=== PATIENT | female | born 1950 | race Caucasian/White ===

== ENCOUNTER → 2016-12-12 | Outpatient (REF) | payer MEDICARE, OTHER ==
[2016-12-12 16:17] LABS: BLOOD UREA NITROGEN 19 MG/DL (7-18); GLOMERULAR FILTRATION RATE > 60.0 (>45)
== END ==
LOC: M LABDRAW1 15:43
PROVIDERS: ATTEND Physical Medicine & Rehabilitation
DX: Z79.899 Other long term (current) drug therapy (principal)

== ENCOUNTER → 2017-07-06 | Outpatient (REF) | payer MEDICARE, OTHER ==
[2017-07-06 16:18] LABS: BLOOD UREA NITROGEN 16 MG/DL (7-18); CREATININE FOR GFR 0.83 MG/DL (0.55-1.02); GLOMERULAR FILTRATION RATE > 60.0 (>45)
== END ==
LOC: M LABDRAW1 14:07
PROVIDERS: ATTEND Physical Medicine & Rehabilitation
DX: Z79.899 Other long term (current) drug therapy (principal)

== ENCOUNTER → 2017-12-12 | Outpatient (CLI) | payer MEDICARE, OTHER | LOC: M RAD 10:30 | DX: Z12.31 Encounter for screening mammogram for malignant neoplasm of breast (principal) | CPT/HCPCS: 77067 ==

== ENCOUNTER → 2018-05-14 | Outpatient (REF) | payer MEDICARE, OTHER ==
[2018-05-14 13:21] LABS: BLOOD UREA NITROGEN 16 MG/DL (7-18)
[2018-05-14 13:21] LABS: CREATININE FOR GFR 0.72 MG/DL (0.55-1.30); GLOMERULAR FILTRATION RATE > 60.0 (>45)
== END ==
LOC: M LABNEURO 09:32
DX: Z79.1 Long term (current) use of non-steroidal anti-inflammatories (NSAID) (principal)
CPT/HCPCS: 82565

== ENCOUNTER → 2018-09-21 | Outpatient (CLI) | payer MEDICARE, OTHER | LOC: M PLARAD 12:47 | DX: M50.320 Other cervical disc degeneration, mid-cervical region, unspecified level (principal) ==

== ENCOUNTER → 2019-11-01 | Outpatient (CLI) | payer MEDICARE, OTHER ==
--- NOTE | 2019-11-01 11:39 | REP ---
INDICATION: Cervical spondylosis PROCEDURE: MR cervical spine without contrast. Axial T1, T2, and sagittal T1 and T2 as well as STIR images are obtained. COMPARISON STUDIES: Prior study from 09/21/2018 was not available for review. FINDINGS: There is straightening of the cervical spine with absent normal cervical lordosis. There is [id number] multilevel degenerative disc disease with loss of disc height and disc desiccation seen diffusely throughout the cervical spine. Vertebral heights are overall preserved. No malalignments. Craniovertebral junction is unremarkable. On the sagittal T2-weighted images, no limiting canal stenosis. The cervical cord is normal in its course, caliber and signal characteristics. On review of axial images, At C2-3 no significant canal or foraminal narrowing. At C3-4 no significant canal or foraminal narrowing At C4-5 no significant canal or foraminal narrowing At C5-6 disc/osteophyte complex with mild left foraminal narrowing; no significant canal or right foraminal narrowing At C6-7 disc/osteophyte complex with [id number]-jxhnlo left foraminal narrowing; no significant canal or right foraminal narrowing. At C7-T1 no significant canal or foraminal narrowing. IMPRESSION: 1. Meuc-fc-[id number] multilevel degenerative disc disease. 2. No limiting canal stenosis. 3. At C6-7 disc/osteophyte complex centered to the left with severe left foraminal narrowing. 4. No focal disc herniation identified. Electronically Signed by Poli Church MD 11/01/2019 11:30 A
== END ==
LOC: M PLARAD 09:53
PROVIDERS: ATTEND Physician Assistant
DX: M47.22 Other spondylosis with radiculopathy, cervical region (principal); M25.78 Osteophyte, vertebrae

== ENCOUNTER → 2019-11-15 | Outpatient (CLI) | payer MEDICARE, OTHER ==
[~2019-11-15] MED LIST: CONRAY-43 43% 50ML VIAL (Q9960) As Ordered ONE; PROHANCE 279.3MG/ML 5ML VIAL (A9576) As Ordered ONE
--- NOTE | 2019-11-15 09:58 | REP ---
MR ARTHROGRAM OF THE LEFT SHOULDER: TECHNIQUE: Axial T2 fat sat, coronal oblique T1, T2 fat sat, post arthrogram axial T1 fat sat, proton density, coronal oblique T1 fat sat, T2 sat, sagittal oblique T2 fat sat, ABER T1 fat sat. Comparison MRI at [facility] 01/10/2017. Supraspinatus tendon demonstrates diffuse ill-defined high signal compatible with tendinopathy with partial thickness tear posteriorly of the distal aspect of the tendon. This is similar in appearance to the prior study. However, there is a new full thickness tear of the anterior of the anterior leading edge of the tendon. Other rotator cuffs tendons appear intact. There does appear to be mild tendinopathy of the scapularis. There are moderate hypertrophic degenerative changes of the acromioclavicular joint. There is a type 1 acromion. The biceps tendon is within the bicipital groove with a small amount of surrounding fluid. There is no Hill-Sachs deformity. There is no abnormal signal of the deltoid muscle. There is fraying of the biceps labral complex. There is a SLAP tear noted. Other portions of the labrum appear intact. There is mild chondromalacia of the glenohumeral joint. Mild subcortical cystic changes are seen in the superolateral humeral head. Small amount of fluid is seen in the subacromial subdeltoid bursa. There is no paralabral cyst. IMPRESSION: Supraspinatus tendon again demonstrates a partial tear posteriorly. There is a new full-thickness partial tear of the anterior leading edge of the tendon. There is mild tendinopathy of the subscapularis. There are moderate hypertrophic degenerative changes of the acromioclavicular joint. There is fraying of the biceps labral complex. A diffuse SLAP tear is noted. There is mild fluid in the subacromial subdeltoid bursae. Electronically Signed by Timothy Cox MD 11/15/2019 12:53 P
--- NOTE | 2019-11-15 11:25 | REP ---
Reason For Exam/Comment: RCT tear flash rupture, question labral tear Procedure: Left shoulder MRI arthrogram The procedure was performed by LUIS E Carpio, under the direct supervision of Dr. Cox. The benefits and risks including but not limited to pain, infection, bleeding and anaphylaxis were explained to the patient and informed consent was obtained both verbally and written. Directly prior to the start of the procedure, a formal timeout was completed in the procedure room. Technique: The left glenohumeral joint space was localized using fluoroscopic guidance. The skin was prepped and draped in the usual sterile fashion. 4 mL of 1% lidocaine 10 mg/ml was used as a local anesthetic. Using fluoroscopic guidance a 22-gauge spinal needle was inserted and advanced to the left glenohumeral joint space. 1 mL of Conray 43 was injected to verify needle placement. 12 mL of a solution containing 20 ml of sterile saline and a 0.15 ml of ProHance was injected into the joint. The needle was removed and the patient was taken MRI for post procedural imaging. The patient tolerated the procedure well and there were no immediate complications. 0.2 minutes of fluoroscopy time was utilized for this procedure. Some fluoroscopic images are performed with last image hold technology. These images require no additional radiation. Reviewed by LUIS E Norman 11/15/2019 08:24 A Electronically Signed by Timothy Cox MD 11/15/2019 11:16 A
== END ==
LOC: M RADPRO 06:16
PROVIDERS: ATTEND Physician Assistant
DX: M75.112 Incomplete rotator cuff tear or rupture of left shoulder, not specified as traumatic (principal)
CPT/HCPCS: 23350; 73223; 77002; A9576; Q9960

== ENCOUNTER 2020-02-05 18:45 | Inpatient (IN) | payer MEDICARE ==
[~2020-02-05] VITALS: Ht 162.6 cm; Wt 81.2 kg
[2020-02-05 21:13] VITALS: BP 130/77
[2020-02-05] MEDS ORDERED: FISH1000 PO (21:43)
[2020-02-05] MEDS ORDERED: VITAD1000T PO (21:43)
[2020-02-05] MEDS ORDERED: ALBU8.5H INH (21:43)
[2020-02-05] MEDS ORDERED: SERT50TA29 PO (21:43)
[2020-02-05] MEDS ORDERED: OMEP-218 PO (21:43)
[2020-02-05] MEDS ORDERED: MELO15TA28 PO (21:43)
[2020-02-05] MEDS ORDERED: BENZ-18 PO (21:43)
[2020-02-05] MEDS ORDERED: GABA-1171 PO (21:43)
[2020-02-05] MEDS ORDERED: PRES10CA2 PO (21:43)
[2020-02-05] MEDS ORDERED: CYAN100050 PO (21:43)
[2020-02-05] MEDS ORDERED: DSS100CA PO (21:43)
[2020-02-05] MEDS ORDERED: MAGN400C2 PO (21:43)
[2020-02-05 22:03] LABS: BASO % 0.6 % (0.0-1.0); EOS # 0.4 10^3/uL (0.0-0.5); EOS % 5.7 % (0.0-3.0); HEMATOCRIT 36.5 % (36.0-47.0); HEMOGLOBIN 11.9 g/dl (12.0-15.5); LYMPH # 1.7 10^3/uL (1.5-5.0); LYMPH % 27.3 % (24.0-44.0); MEAN CORPUSCULAR HEMOGLOBIN 30.3 pg (27.0-33.0); MEAN CORPUSCULAR HGB CONC 32.6 g/dl (32.0-36.5); MEAN CORPUSCULAR VOLUME 92.9 fl (80.0-96.0); MONO # 0.9 10^3/uL (0.0-0.8); NEUTROPHILS # 3.2 10^3/uL (1.5-8.5); NEUTROPHILS % 52.1 % (36.0-66.0); PLATELET COUNT, AUTOMATED 207 10^3/uL (150-450); RED BLOOD COUNT 3.93 10^6/uL (4.00-5.40); WHITE BLOOD COUNT 6.2 10^3/uL (4.0-10.0)
[2020-02-05 22:14] LABS: INR 1.35; PROTHROMBIN TIME 16.4 SECONDS (11.8-14.0)
[2020-02-05 22:15] LABS: PARTIAL THROMBOPLASTIN TIME 28.8 SECONDS (25.0-38.4)
[2020-02-05 22:17] LABS: D-DIMER QUANT 385.76 ng/ml (<500)
[2020-02-05 22:36] LABS: ALBUMIN 3.2 GM/DL (3.2-5.2); ALT/SGPT 20 U/L (12-78); BILIRUBIN,TOTAL 0.4 MG/DL (0.2-1.0); BLOOD UREA NITROGEN 18 MG/DL (7-18); CALCIUM LEVEL 8.3 MG/DL (8.8-10.2); CARBON DIOXIDE LEVEL 26 MEQ/L (21-32); CHLORIDE LEVEL 108 MEQ/L (98-107); CK-MB VALUE MASS < 1.0 NG/ML (<3.6); CPK CREATINE PHOSPHOKINASE 48 U/L (26-192); CREATININE FOR GFR 0.72 MG/DL (0.55-1.30); FERRITIN 154 NG/ML (8-252); GLOMERULAR FILTRATION RATE > 60.0 (>45); GLUCOSE, FASTING 104 MG/DL (70-100); LDH LACTATE DEHYDROGENASE 254 U/L (84-246); MB/CK RELATIVE INDEX 2.08 (< OR =4); NT-PRO BNP 162 PG/ML (<125); POTASSIUM SERUM 4.1 MEQ/L (3.5-5.1); SODIUM LEVEL 140 MEQ/L (136-145); TOTAL PROTEIN 6.7 GM/DL (6.4-8.2); TRIGLYCERIDES LEVEL 56 MG/DL (<150); TROPONIN I < 0.02 NG/ML (< 0.10)
[2020-02-05 23:24] LABS: HIV 1&2 SCREEN CENTAUR NEGATIVE (NEGATIVE)
[2020-02-05 23:37] LABS: ERYTHROCYTE SEDIMENTATION RATE 30 mm/hr (0-30)
[2020-02-06] MEDS: DOCUSATE SODIUM 100 MG CAP PO SCH ×3 (01:03→20:14)
[2020-02-06] MEDS: GABAPENTIN 100 MG CAP PO SCH ×4 (01:04→20:14)
[2020-02-06] MEDS ORDERED: IPRATROPIUM 0.5MG/ALBUTEROL 2.5MG INH SOL UD 3ML (DUONEB)(J7620) NEB PRN (05:15)
--- NOTE | 2020-02-06 05:36 | HPEPDOC ---
[facility] Medical History & Physical Date of Admission Feb 05, 2020 Date of Service: Feb 05, 2020 History and Physical CHIEF COMPLAINT: Dyspnea on exertion, cough and abnormal CT of the chest HISTORY OF PRESENT ILLNESS: This is a 69-year-old female with a medical history of arthritis, depression who was transferred to [facility] from [facility] for dyspnea and wheezing on exertion, dry cough and abnormal CT of the chest without contrast. She states symptoms initially started January 14 where she had dyspnea and shortness of breath with exertion. She rated the dyspnea as moderate with no fevers chills or sputum production at that time. She had COVD test and PA chest x-ray which were both negative. She self quarantine this month and a week later (January 20) she noticed her dyspnea on exertion did not improve and her cough became yellowish and productive in nature. Her PCP then repeated a chest x-ray which showed a community acquired pneumonia and she was advised to take a 10 day course of doxycycline. She noticed her productive cough improved with the antibiotics but the dyspnea on exertion continue to persist. Today during her telemetry medicine appointment with her PCP it was recommended her to get us outpatient CT of the chest without contrast and repeat coated due to persisting symptoms. Because of her CT of the chest was abnormal she was advised to go to the ED for further evaluation. She does endorse to monitor her O2 sats at home averaging about 92% on room air but does notice it will go to a low of 80% with exertion but will recover with rest. PAST MEDICAL HISTORY: 1. Arthritis 2. GERD. 3. Depression 4. Hyperlipidemia 5. Chronic interstitial cystitis 6. Chronic micropscopic hematuria 7. Bilateral Cateracts HOME MEDICATIONS: Please see below. ALLERGIES: Please see below PAST SURGICAL HISTORY: 1. Left arthroscopy 2. Low back surgery 3. Cystectomy 4. Tubal ligation 5. Left leg vein stripping 6. Bipsy left breast. 7. Left wrist fracture with ORIF SOCIAL HISTORY: , Tobacco use: Denies ETOH: Denies Illicit drug use: Denies, CODE STATUS: Full code FAMILY HISTORY:Reviewed. Mother- arthritis, father-congestive heart failure, brothers- pulmonary fibrosis, COPD, prostate cancer with metastases REVIEW OF SYSTEMS: 10 systems reviewed. Constitutional: Denies fever, chills, night sweats, weight loss HEENT: Denies headache, dysphagia Skin: Denies any rashes or lesions Pulmonary: Admits to dyspnea, dry cough and wheezing on exertion Cardiac: Denies chest pain, palpitations, orthopnea, PND, edema, lightheadedness GI: Denies nausea, vomiting, abdominal pain, diarrhea, constipation, melena, hematochezia : Denies dysuria, hematuria, retention MSK: Denies new pain or weakness, has arthritic changes on her fingers bilaterally unchanged. 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 PHYSICAL EXAMINATION: VITAL SIGNS: See below GENERAL: Pleasant 69 year old sitting up in bed awake alert oriented speaking in complete sentences no acute distress HEENT: Atraumatic, normocephalic, pupils equal round and reactive, no JVD noted. CARDIOVASCULAR: S1 S2 regular no additional heart sounds appreciated. RESPIRATORY: Clear to auscultate in the upper lobe but rhonchi appreciated in the ABDOMINAL: Bowel sounds present abdomen soft and nontender EXTREMITIES: Lower extremity edema or calf tenderness. NEUROLOGICAL: no gross focal deficits appreciated PSYCHOLOGICAL: Appropriate LABORATORY DATA: See below. MICROBIOLOGY: Please see below. IMAGING: CT of the chest without contrast at [facility] Fairly extensive diffuse mostly peripheral opacity which appears to be a combination of both acute and chronic disease. Findings not typical for Covid 19 but not exclusive correlate Clinically and suggest follow-up imaging. ASSESSMENT & PLAN: This is a 69-year-old female presenting for dyspnea and wheezing on exertion, dry cough and abnormal CT of the chest. PROBLEMS: 1. Dyspnea and wheezing on exertion possible viral pneumonitis versus COPD exacerbation. Unlikely Covid vs PE -Denies any recent fevers, and Covid 3 negative most current today at [facility] and [place] prior to transfer. -[facility] lab: Influenza A/B negative, VBG was normal pH, troponin normal, lactic acid within normal limits with no abnormal CBC or BMP findings. -CT of the chest CD in the chart. Imaging was reviewed by me which showed increased interstitial markings and opacity in the base of the lungs bilate rally. -I would recommend that they discuss with pulmonary findings a CT of the chest broadened differential. -Due to the history of wheezing and dyspnea on exertion, recommended Solu- Thsett37 mg every 12 for the next 2 days and see if there is clinical improvement of exertional symptoms. -Antibiotics not warranted for there is no leukocytosis and denies any constitutional symptoms. -Possibly will need pulmonary function test? -Duonebs PRN + benzonatate -Titrate oxygen above 90% -If worsening hypoxia and requires more oxygen can consider CT angios the chest to rule out a PE. Suspicion is very low currently due to normal d-dimer, normal heart rate, satting appropriately on room air with no pleurisy complaints. 2. Abnormal CT of the chest without contrast. refer to problem 1 and hold melox icam 3. Low back pain - consider No-NSAIDs for pain control if needed due to problem 1 and 2. Continue with home gabapentin 4. GERD. Continue with home omeprazole 5. Depression. Continue with home sertraline DVT PROPHYLAXIS: Heparin BID DISPOSITION: Admit to [facility] Vital Signs Vital Signs Date Time Temp Pulse Resp B/P (MAP) Pulse Ox O2 Delivery O2 Flow Rate FiO2 02/06/20 02:00 69 93 Room Air 02/05/20 21:13 98.9 20 130/77 (94) 2.0 Laboratory Data Labs 24H Laboratory Tests 2 02/05/20 21:20: Coronavirus (COVID-19)(PCR) NEGATIVE 02/05/20 21:48: Immature Granulocyte % (Auto) 0.3, Neutrophils (%) (Auto) 52.1, Lymphocytes (%) (Auto) 27.3, Monocytes (%) (Auto) 14.0H, Eosinophils (%) (Auto) 5.7H, Basophils (%) (Auto) 0.6, Neutrophils # (Auto) 3.2, Lymphocytes # (Auto) 1.7, Monocytes # (Auto) 0.9H, Eosinophils # (Auto) 0.4, Basophils # (Auto) 0.0, Nucleated Red Blood Cells % (auto) 0.0, Erythrocyte Sedimentation Rate 30, Lactic Acid Level 1.0 02/05/20 21:49: Prothrombin Time 16.4H, Prothromb Time International Ratio 1.35, Activated Partial Thromboplast Time 28.8, Fibrinogen 438, D-Dimer, Quantitative 385.76, Anion Gap 6L, Glomerular Filtration Rate > 60.0, Calcium Level 8.3L, Ferritin 154, Total Bilirubin 0.4, Aspartate Amino Transf (AST/SGOT) 22, Alanine Aminotransferase (ALT/SGPT) 20, Alkaline Phosphatase 118H, Lactate Dehydrogenase 254H, Total Creatine Kinase 48, Creatine Kinase MB < 1.0, Creatine Kinase MB Relative Index 2.08, Troponin I < 0.02, C-Reactive Protein, Quantitative 0.30, NT-Mol-L-Type Natriuretic Peptide 162H, Total Protein 6.7, Albumin 3.2, Albumin/Globulin Ratio 0.91L, Triglycerides Level 56, HIV Antigen/Antibody Combo Qual NEGATIVE CBC/BMP Laboratory Tests 02/05/20 21:48 02/05/20 21:49 Microbiology Microbiology 02/05/20 Blood Culture, Received Pending 02/05/20 Blood Culture, Received Pending Home Medications Scheduled Cholecalciferol (Vitamin D3) (Vitamin D3) 1,000 Unit Tablet, 1,000 UNITS PO DAILY Cyanocobalamin (Vitamin B-12) (Vitamin B-12) 1,000 Mcg Tablet, 1,000 MCG PO DAILY Docusate Sodium (Stool Softener) 100 Mg Capsule, 100 MG PO BID Gabapentin (Gabapentin) 100 Mg Capsule, 100 MG PO TID Magnesium Oxide (Magnesium) 400 Mg Capsule, 400 MG PO DAILY Meloxicam (Meloxicam) 15 Mg Tablet, 15 MG PO DAILY [place]-3 Fatty Acids/Fish Oil (Fish Oil 1,000 mg Capsule) 1 Each Capsule, 1,000 MG PO DAILY Omeprazole (Omeprazole) 20 Mg Capsule.dr, 20 MG PO BID Sertraline HCl (Sertraline HCl) 50 Mg Tablet, 50 MG PO DAILY Vit C/E/Zn/Coppr/Lutein/Zeaxan (Preservision Areds 2 Softgel) 1 Each Capsule, 1 CAP PO BID Scheduled PRN Albuterol Sulfate (Albuterol Sulfate Hfa) 8.5 Gm Hfa.aer.ad, 2 PUFF INH Q4H PRN for SHORTNESS OF BREATH Benzonatate (Benzonatate) 100 Mg Capsule, 100 MG PO TID PRN for COUGH PATIENT TAKES ONE TO TWO CAPSULES Allergies Coded Allergies: Quinolones (Verified Allergy, Intermediate, HIVES, 02/05/20) codeine (Unverified Adverse Reaction, Unknown, INCREASED PAIN, 02/05/20) PRISCILLA PATEL DO Feb 06, 2020 04:55
[2020-02-06 05:40] LABS: HEMATOCRIT 35.4 % (36.0-47.0); HEMOGLOBIN 11.4 g/dl (12.0-15.5); MEAN CORPUSCULAR HGB CONC 32.2 g/dl (32.0-36.5); MEAN CORPUSCULAR VOLUME 93.2 fl (80.0-96.0); PLATELET COUNT, AUTOMATED 200 10^3/uL (150-450); WHITE BLOOD COUNT 6.9 10^3/uL (4.0-10.0)
[2020-02-06] MEDS: methylPREDNISolone INJ 40 MG/1 ML VIAL (J2920) IV SCH ×2 (05:58→17:01)
[2020-02-06 06:00] VITALS: BP 97/54
[2020-02-06 06:05] LABS: BLOOD UREA NITROGEN 16 MG/DL (7-18); CALCIUM LEVEL 8.6 MG/DL (8.8-10.2); CARBON DIOXIDE LEVEL 28 MEQ/L (21-32); CHLORIDE LEVEL 105 MEQ/L (98-107); CREATININE FOR GFR 0.69 MG/DL (0.55-1.30); GLOMERULAR FILTRATION RATE > 60.0 (>45); GLUCOSE, FASTING 85 MG/DL (70-100); POTASSIUM SERUM 4.6 MEQ/L (3.5-5.1); SODIUM LEVEL 138 MEQ/L (136-145)
[2020-02-06] MEDS ORDERED: PREVNAR 13 VACCINE SYRINGE (CPT CODE:90670) IM SCH (06:15)
[2020-02-06 07:35] VITALS: BP 103/63
[2020-02-06] MEDS: OMEPRAZOLE 20 MG CAP PO SCH ×2 (08:31→20:14)
[2020-02-06] MEDS: SERTRALINE HCL 50 MG TAB PO SCH (08:31)
[2020-02-06] MEDS: HEPARIN SOD (PORCINE) 5000UNITS/ML VIAL (J1644 PER 1000UNITS) SQ SCH ×2 (08:32→20:14)
[2020-02-06 10:00] VITALS: BP 111/71
[2020-02-06 10:19] VITALS: BP 112/70
[2020-02-06] MEDS: BENZONATATE 100 MG CAP PO PRN (12:58)
[2020-02-06] MEDS: guaiFENesin SYRUP 200 MG/10 ML UDC PO PRN (13:45)
--- NOTE | 2020-02-06 13:59 | IPNPDOC ---
Text Note Date of Service The patient was seen on 02/06/20. NOTE Subjective: -Feels ok this morning, however continued to have an incessant dry cough Objective: VITAL SIGNS: See below GENERAL: Pleasant 69 year old sitting up in bed awake alert oriented speaking in complete sentences no acute distress HEENT: Atraumatic, normocephalic, pupils equal round and reactive, no JVD noted. CARDIOVASCULAR: S1 S2 regular no additional heart sounds appreciated. RESPIRATORY: Clear to auscultate in the upper lobe but rhonchi appreciated in the ABDOMINAL: Bowel sounds present abdomen soft and nontender EXTREMITIES: Lower extremity edema or calf tenderness. NEUROLOGICAL: no gross focal deficits appreciated PSYCHOLOGICAL: Appropriate LABORATORY DATA: WBC 6.9 Hgb 11.4 Platelets 200 na 138 K 4.6 Cr 0.69 Procalcitonin - pending BCx- pending Mycoplasma - pending Covid-19 PCR negative MICROBIOLOGY: Please see below. IMAGING: CT of the chest without contrast at [facility] Fairly extensive diffuse mostly peripheral opacity which appears to be a combination of both acute and chronic disease. Findings not typical for Covid 19 but not exclusive correlate Clinically and suggest follow-up imaging. ASSESSMENT & PLAN: 69-year-old W with RA presenting for dyspnea and wheezing on exertion, dry cough and abnormal CT of the chest found to be covid-19 negative without erendira evidence of PNA or diagnosis of COPD or asthma. PROBLEMS: Dyspnea and wheezing on exertion possible viral pneumonitis vs. bronchitis. Negative for Covid-19, and d-dimer wnl with low probability for PE -Denies any recent fevers, and Covid 3 negative most current today at [facility] and [place] prior to transfer. -[place] [facility]sl Influenza A/B negative, VBG was normal pH, troponin normal, lactic acid within normal limits with no abnormal CBC or BMP findings. -CT of the chest showed increased interstitial markings and bibasilar GGOs, will discuss with pulm -Due to the history of wheezing and dyspnea on exertion giving methylpred 40 IV BID for the next 2 days and monitor for clinical improvement of exertional symptoms. -Hold on starting antibiotics without leukocytosis, constitutional symptoms and pending procalcitonin. -Will refer to pulm at discharge for PFTs -Duonebs PRN + benzonatate + Robitussin -Titrate oxygen above 92% Low back pain - Continue with home gabapentin and acetaminophen PRN GERD. Continue home omeprazole Depression. Continue with home sertraline DVT PROPHYLAXIS: Heparin 40 QD DISPOSITION: medsurg, with PT/OT with ambulatory sat, pending clinical improvement VSJesus, I+O VSJesus, I+O Laboratory Tests 02/05/20 21:48 02/05/20 21:49 02/06/20 05:13 Vital Signs Date Time Temp Pulse Resp B/P (MAP) Pulse Ox O2 Delivery O2 Flow Rate FiO2 02/06/20 06:00 98.3 71 20 97/54 (68) 94 Room Air 02/05/20 21:13 2.0 I&O- Last 24 Hours up to 6 AM 02/06/20 06:00 Intake Total 100 ml Balance 100 ml GENO REYES MD Feb 06, 2020 07:44
[2020-02-06 14:00] VITALS: BP 105/72
[2020-02-06 22:00] VITALS: BP 115/68
[2020-02-07 00:06] LABS: HEPATITIS B CORE ANTIBODY IGG Negative (Negative)
[2020-02-07] MEDS: BENZONATATE 100 MG CAP PO PRN (05:36)
[2020-02-07] MEDS: methylPREDNISolone INJ 40 MG/1 ML VIAL (J2920) IV SCH ×2 (05:36→16:58)
[2020-02-07 06:00] VITALS: BP 136/85
[2020-02-07 06:54] LABS: HEMATOCRIT 36.8 % (36.0-47.0); HEMOGLOBIN 11.9 g/dl (12.0-15.5); MEAN CORPUSCULAR HEMOGLOBIN 30.2 pg (27.0-33.0); MEAN CORPUSCULAR HGB CONC 32.3 g/dl (32.0-36.5); MEAN CORPUSCULAR VOLUME 93.4 fl (80.0-96.0); PLATELET COUNT, AUTOMATED 209 10^3/uL (150-450); RED BLOOD COUNT 3.94 10^6/uL (4.00-5.40); WHITE BLOOD COUNT 8.1 10^3/uL (4.0-10.0)
[2020-02-07 07:14] LABS: BLOOD UREA NITROGEN 19 MG/DL (7-18); CALCIUM LEVEL 8.4 MG/DL (8.8-10.2); CARBON DIOXIDE LEVEL 27 MEQ/L (21-32); CHLORIDE LEVEL 104 MEQ/L (98-107); GLOMERULAR FILTRATION RATE > 60.0 (>45); GLUCOSE, FASTING 96 MG/DL (70-100); MAGNESIUM LEVEL 2.2 MG/DL (1.8-2.4); POTASSIUM SERUM 4.1 MEQ/L (3.5-5.1); SODIUM LEVEL 136 MEQ/L (136-145)
[2020-02-07] MEDS: DOCUSATE SODIUM 100 MG CAP PO SCH ×2 (08:56→20:57)
[2020-02-07] MEDS: SERTRALINE HCL 50 MG TAB PO SCH (08:56)
[2020-02-07] MEDS: OMEPRAZOLE 20 MG CAP PO SCH ×2 (08:56→20:57)
[2020-02-07] MEDS: GABAPENTIN 100 MG CAP PO SCH ×3 (08:56→20:57)
[2020-02-07] MEDS: HEPARIN SOD (PORCINE) 5000UNITS/ML VIAL (J1644 PER 1000UNITS) SQ SCH ×2 (08:57→20:57)
[2020-02-07 11:04] LABS: HEPATITIS B SURFACE ANTIGEN NEGATIVE (NEGATIVE)
[2020-02-07 14:00] VITALS: BP 106/72
--- NOTE | 2020-02-07 14:03 | REP ---
REASON FOR EXAM: Cough. COMPARISON: Multiple, the latest 04/20/2015, also portable. The technique utilized in obtaining the radiograph has magnified the cardiac silhouette and accentuated the interstitial markings. The cardiac silhouette is magnified by technique. Mild cardiomegaly cannot be ruled out. The lung ventura are less than optimally aerated. This crowds the vascularity further limiting the exam. The interstitial markings are slightly diffusely increased. No definite acute patchy parenchymal opacities or pleural effusions seem to have developed on this limited portable exam. The osseous structures are stable and intact. IMPRESSION: Findings and limitations as described above. I cannot rule out the possibility of mild interstitial edema. Consider PA and lateral views of the chest. Electronically Signed by Subhash Abel DO 02/07/2020 02:58 P
--- NOTE | 2020-02-07 16:04 | IPNPDOC ---
Text Note Date of Service The patient was seen on 02/07/20. NOTE Subjective: -Continues to have the dry cough and profound hypoxemia with exertion and return to normal sats with rest Objective: VITAL SIGNS: See below GENERAL: Pleasant 69 year old sitting up in bed awake alert oriented speaking in complete sentences no acute distress HEENT: Atraumatic, normocephalic, pupils equal round and reactive, no JVD noted. CARDIOVASCULAR: S1 S2 regular no additional heart sounds appreciated. RESPIRATORY: Dry velcro-like crackles in posterior lower lung ventura, clear upper ventura, no wheezing or rhonchi ABDOMINAL: Bowel sounds wnl, abdomen soft and nontender EXTREMITIES: No lower extremity edema or calf tenderness, WWP NEUROLOGICAL: no gross focal deficits appreciated PSYCHOLOGICAL: Appropriate LABORATORY DATA: WBC 8.1 Hgb 11.9 Platelets 209 Cr 0.7 Procalcitonin - wnl BCx- negative Mycoplasma - pending Covid-19 PCR negative MICROBIOLOGY: Please see below. IMAGING: CT of the chest without contrast at [facility] Fairly extensive diffuse mostly peripheral opacity which appears to be a combination of both acute and chronic disease. Findings not typical for Covid 19 but not exclusive correlate Clinically and suggest follow-up imaging. ASSESSMENT & PLAN: 69-year-old W with RA who presented for dyspnea and wheezing on exertion, dry cough and CT of the chest with peripheral fibrosis found to be covid-19 negative without erendira evidence of PNA or diagnosis of COPD or asthma with ongoing exertional hypoxemia and persistent dry cough PROBLEMS: Dyspnea and wheezing on exertion possible viral pneumonitis, rheumatologically mediated progressive fibrosis vs. allergic pneumonitis to family birds Negative for Covid-19, and d-dimer wnl with low probability for PE -Denies any recent fevers, and Covid negative -[place] labs showed Influenza A/B negative, VBG was normal pH, troponin normal, lactic acid within normal limits with no abnormal CBC or BMP findings. -CT of the chest showed increased interstitial markings and bibasilar fibrosis -consulted pulm --> will see her tomorrow -Due to the history of wheezing and dyspnea on exertion giving methylpred 40 IV BID, frankly unclear if there has been utility to the methylpredo 40 BID at this time -Hold on starting antibiotics without leukocytosis, constitutional symptoms and negative procalcitonin. -Will follow up with pulm at discharge for PFTs and optimization -Duonebs PRN + benzonatate + Robitussin -Titrate oxygen above 92% Low back pain - Continue with home gabapentin and acetaminophen PRN GERD. Continue home omeprazole Depression. Continue with home sertraline DVT PROPHYLAXIS: Heparin 40 QD DISPOSITION: medsurg, with PT/OT with ambulatory sat, pending pulm consult and pending clinical improvement VS,Fishbone, I+O VS, Fishbone, I+O Laboratory Tests 02/07/20 06:09 Vital Signs Date Time Temp Pulse Resp B/P (MAP) Pulse Ox O2 Delivery O2 Flow Rate FiO2 02/07/20 14:00 97.8 82 18 106/72 (83) 95 Room Air 02/05/20 21:13 2.0 I&O- Last 24 Hours up to 6 AM 02/07/20 06:00 Intake Total 1890 ml Output Total 1500 ml Balance 390 ml GENO REYES MD Feb 07, 2020 16:04
[2020-02-07 22:00] VITALS: BP 122/65
[2020-02-08 00:07] LABS: MYCOPLASMA PNEUMONIAE IgG 433 U/mL (0-99); MYCOPLASMA PNEUMONIAE IgM <770 U/mL (0-769)
[2020-02-08 06:00] VITALS: BP 102/62
[2020-02-08 06:28] LABS: HEMATOCRIT 36.7 % (36.0-47.0); MEAN CORPUSCULAR HEMOGLOBIN 30.8 pg (27.0-33.0); MEAN CORPUSCULAR HGB CONC 32.7 g/dl (32.0-36.5); MEAN CORPUSCULAR VOLUME 94.1 fl (80.0-96.0); PLATELET COUNT, AUTOMATED 199 10^3/uL (150-450); WHITE BLOOD COUNT 8.9 10^3/uL (4.0-10.0)
[2020-02-08 06:48] LABS: BLOOD UREA NITROGEN 17 MG/DL (7-18); CALCIUM LEVEL 8.5 MG/DL (8.8-10.2); CARBON DIOXIDE LEVEL 27 MEQ/L (21-32); CHLORIDE LEVEL 106 MEQ/L (98-107); CREATININE FOR GFR 0.74 MG/DL (0.55-1.30); GLOMERULAR FILTRATION RATE > 60.0 (>45); GLUCOSE, FASTING 86 MG/DL (70-100); MAGNESIUM LEVEL 2.3 MG/DL (1.8-2.4); POTASSIUM SERUM 4.2 MEQ/L (3.5-5.1); SODIUM LEVEL 138 MEQ/L (136-145)
[2020-02-08] MEDS ORDERED: AZITHROMYCIN 250MG TABLET PO ONE (09:00)
[2020-02-08] MEDS: GABAPENTIN 100 MG CAP PO SCH ×3 (09:20→20:14)
[2020-02-08] MEDS: SERTRALINE HCL 50 MG TAB PO SCH (09:20)
[2020-02-08] MEDS: DOCUSATE SODIUM 100 MG CAP PO SCH ×2 (09:20→20:14)
[2020-02-08] MEDS: OMEPRAZOLE 20 MG CAP PO SCH ×2 (09:20→20:14)
[2020-02-08] MEDS: HEPARIN SOD (PORCINE) 5000UNITS/ML VIAL (J1644 PER 1000UNITS) SQ SCH ×2 (09:21→20:14)
--- NOTE | 2020-02-08 11:57 | IPNPDOC ---
Text Note Date of Service The patient was seen on 02/08/20. NOTE Subjective: -Continues to have the dry cough and hypoxemia with exertion, otherwise wnl at rest Objective: VITAL SIGNS: See below GENERAL: NAD, sitting up in bed HEENT: Atraumatic, normocephalic, pupils equal round and reactive, no JVD CARDIOVASCULAR: RRR, no mrg RESPIRATORY: Persistent dry crackles in posterior lower lung ventura, clear upper ventura, no wheezing or rhonchi ABDOMINAL: Bowel sounds wnl, abdomen soft and nontender EXTREMITIES: No lower extremity edema or calf tenderness, WWP NEUROLOGICAL: no gross focal deficits appreciated PSYCHOLOGICAL: Appropriate LABORATORY DATA: WBC 8.9 Hgb 12 Mycoplasma - IgG positive, IgM negative. Covid-19 PCR negative pending rheum and broader infectious workup MICROBIOLOGY: Please see below. ASSESSMENT: 69-year-old W with RA who presented for dyspnea and wheezing on exertion, dry cough and CT of the chest with peripheral fibrosis found to be covid-19 negative without erendira evidence of PNA or diagnosis of COPD or asthma with ongoing exertional hypoxemia and persistent dry cough with pending pulmonology evaluation. PROBLEMS: Dyspnea and wheezing on exertion possible viral pneumonitis, rheumatologically mediated progressive fibrosis vs. allergic pneumonitis to family birds Negative for Covid-19, and d-dimer wnl with low probability for PE -Denies any recent fevers, and Covid negative -[facility] labs showed Influenza A/B negative, VBG was normal pH, troponin normal, lactic acid within normal limits with no abnormal CBC or BMP findings. -CT of the chest showed increased interstitial markings and bibasilar fibrosis, have to call [facility] for disc -consulted pulm, ordered rheum and broader infectious labs, pending recs, per our discussion thus far recommending prolonged pred taper for likely hypersensi tivity pneumonitis 2/2 to patient's birds -Due to the history of wheezing and dyspnea on exertion s/p a trial of methylpred 40 IV BID for 2d without much improvement, dc'd until pulm evaluation -No antibiotics without leukocytosis, constitutional symptoms and negative procalcitonin. Showing +IgG for mycoplasma with negative IgM. Was recently tx with 10d of doxycycline. -Will follow up with pulm at discharge for PFTs and optimization -Duonebs PRN + benzonatate + Robitussin -Titrate oxygen above 92% Low back pain - Continue with home gabapentin and acetaminophen PRN GERD. Continue home omeprazole Depression. Continue with home sertraline DVT PROPHYLAXIS: Heparin 40 QD DISPOSITION: medsurg, with PT/OT with ambulatory sat, pending pulm evaluation and pending clinical improvement VS,Jesus, I+O VS, Rubioe, I+O Laboratory Tests 02/08/20 06:02 Vital Signs Date Time Temp Pulse Resp B/P (MAP) Pulse Ox O2 Delivery O2 Flow Rate FiO2 02/08/20 06:00 97.6 81 19 102/62 (75) 93 Room Air 02/05/20 21:13 2.0 I&O- Last 24 Hours up to 6 AM 02/08/20 06:00 Intake Total 2610 ml Output Total 1750 ml Balance 860 ml GENO REYES MD Feb 08, 2020 08:27
--- NOTE | 2020-02-08 12:11 | CR ---
DATE OF CONSULTATION: 02/08/2020 CHIEF COMPLAINT: Shortness of breath and cough. HISTORY OF PRESENT ILLNESS: Ms. Rivera is a 69 -year-old female with a past medical history of osteoarthritis, hyperlipidemia and gastroesophageal reflux disease who was transferred from [facility] to [facility] for ongoing dyspnea with an abnormal CT chest. The patient states she has been noticing symptoms for the past 6 months to a year of shortness of breath with exertion. She has been told by friends and family that her lips occasionally will turn bluish purple discoloration she will also notice this purplish blue discoloration in her fingers as well. The patient states in the past 6 weeks, however, she has noticed progressively worsening shortness of breath and dyspnea with exertion. She also started complaining of a cough, which was occasionally productive of mucus yellowish in color. She did also initially notice some episodes of hemoptysis which resolved after 2 days. The patient had been seen as an outpatient by her primary care provider. She had an initial presentation at the urgent care with COVID testing, which was reportedly negative. She was instructed to self quarantine. However of week later, she had continued symptoms of dyspnea and cough and so presented for a repeat chest x-ray, which she was told showed evidence of pneumonia. Her PCP ordered a 10-day course of doxycycline, which she took and did have some slight improvement in terms of the mucus production. He also prescribed her albuterol rescue inhaler to be used as needed and Tessalon Perles to be used for her cough. However, she continued to have a nonproductive cough which was worse with exertion as well as continued significant dyspnea with minimal exertion. The patient was seen again by her primary care provider and was then recommended to get a CT of the chest at [facility]. Her CT was abnormal and she did have third COVID testing again which was also negative. At [facility] the patient was noted to not have any leukocytosis. She was normotensive and at rest on room air, she was saturating well. However, with minimal exertion, the patient desaturated into the low 80s and occasionally in the 70s. The patient was started initially on Solu-Medrol 40 mg every 12 hours. She was also given Tessalon Perles and DuoNebs as needed. She currently states that her breathing is unchanged. She feels her cough has improved although it had started to improve prior to her hospitalization here. She does continue to have some nonproductive cough with exertion but her shortness of breath with exertion is unchanged at this time. She denies having any chest pain. Has not had any increased lower extremity edema. Denies any abdominal pain. No nausea or vomiting. The patient denies a previous history of rheumatoid arthritis. She has a history of what she was told was osteoarthritis. She does have joint pain in her shoulder with rotator cuff injury in the past as well as some pain in her knee, which she states has a torn meniscus in the left knee. She also has some neuropathy in her upper extremities, which she states is chronic after she had cervical injury. PAST MEDICAL/SURGICAL HISTORY: Osteoarthritis. Gastroesophageal reflux disease. Depression. Hyperlipidemia. Chronic interstitial cystitis. Chronic microscopic hematuria. Bilateral cataract surgery. Left arthroscopy of the knee. Low back surgery. Cystectomy. Tubal ligation. Left leg vein stripping. Biopsy of the left breast. Left wrist fracture with open reduction internal fixation (ORIF). FAMILY HISTORY: Mother with history of rheumatoid arthritis. Father with history of congestive heart failure (CHF). There is a one brother with history of pulmonary fibrosis, another brother with history of chronic obstructive pulmonary disease (COPD) and a younger brother who is secondary to metastatic prostate cancer. SOCIAL HISTORY: The patient denies history of smoking. She does have secondhand smoke exposure with her parents and siblings. The patient denies any toxins exposure including asbestos or other chemicals. 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 The patient has pets at home with dogs as well as she estimates 70 small birds. The patient and her has had birds at various times in the past including pigeons. More recently her had started taking up bird collecting and breeding, she states about 2 years ago with parakeets, finches etc. The birds are kept in one room in the house and she does go in the room to clean the bird cages and help take care of the birds. HOME MEDICATIONS: - vitamin D3 - vitamin B12 - gabapentin - magnesium oxide - meloxicam - fish oil - omeprazole - sertraline - albuterol as needed - Tessalon as needed ALLERGIES: QUINOLONES and CODEINE PHYSICAL EXAMINATION: Temperature 97.6, pulse 81, respirations 19, blood pressure 102/62, O2 sat 93% on room air, input 2.4 liters, outs 1.8 liters. GENERAL: The patient is a pleasant female who is sitting in bed in no acute respiratory distress. She is speaking in complete sentences and is not using any accessory muscles for respiration. HEENT: Normocephalic, atraumatic. Pupils are round and reactive to light. Neck is supple. There is no palpable adenopathy. Trachea is midline. Moist mucous membranes. CARDIOVASCULAR: Regular rate and rhythm. Normal S1, S2. No murmurs appreciated. RESPIRATORY: Diminished breath sounds bilaterally. There are bilateral crackles noted in the bases of the lung. No significant wheezing or rhonchi. ABDOMEN: Abdomen is soft, nontender, nondistended. No palpable mass. EXTREMITIES: There are some varicose veins but no significant lower extremity edema bilaterally. There is no significant joint pain or joint swelling. SKIN: There is no rashes or skin lesions noted. The patient does not have any clubbing of fingernails. There are some cold extremities in her fingers and some mild purplish discoloration. LABORATORY DATA: WBC 8.9, hemoglobin 12.0, platelets are 199. Chemistry: sodium is 138, potassium 4.2, chloride is 106, bicarb is 27, BUN 17, creatinine 0.74, glucose 86. [place] labs showed influenza A and B negative. Troponins were within normal limits and lactic acid was normal. Micro here showed mycoplasma IgG positive, IgM negative. Rheumatoid factor was negative. IMAGING STUDIES: Chest x-ray on admission showed some increased interstitial markings diffusely. There is no focal opacities. No pleural effusions. Outside CT from [facility]: No imaging to review but reports prelim states fairly extensive diffuse peripheral opacity which appears to be combination of both acute and chronic disease. ASSESSMENT/PLAN: Ms. Rivera is a 69-year-old female with a history of arthritis, gastroesophageal reflux disease (GERD), hyperlipidemia who presents with complaints of worsening dyspnea on exertion as well as a nonproductive cough for the past 6 weeks. The patient reports her symptoms had been ongoing for the past 6 months to a year in terms of her shortness of breath with exertion as well as family members reporting some cyanosis of her lips and fingers. In the past 6 weeks, however, she was noted to have worsening shortness of breath with exertion as well as a cough, which initially had some occasional mucus production of yellow mucus and hemoptysis and has now turned into a persistent nonproductive cough. The patient denied having any fevers or chills. She did not have any chest pain. She did have previous COVID testing which was negative times three now. She was also treated as an outpatient for possible pneumonia with doxycycline with some improvement in the productive cough but no improvement in her persistent dyspnea or in her nonproductive cough. The patient had outside CT of the chest done which showed some evidence of potential chronic fibrosis. There is no imaging for review but as per the radiology preliminary report suggests a combination of acute and chronic disease. Her x-ray here shows some increased additional markings and possible bibasilar fibrosis. On further questioning the patient does report a history of having more than 70 birds in the home. Her had taken up bird breeding approximately 2 years ago or so and they have continued to acquire more birds as well as breed them at home. The patient otherwise denies symptoms consistent with inflammatory arthritis and her initial rheumatoid factor is negative. She was ordered for other connective tissue disease testing for evaluation for interstitial lung disease including ANCA, CCP, anti Jessica-1, anti PL7 and scleroderma antibodies as well as a U3 TRAIN SYSTEM OPERATOR, anticentromere, and antimitochondrial antibodies which are still pending. The patient also was ordered for hypersensitivity pneumonitis panel which is pending as well. 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 The patient may have an acute component on top of a chronic component of her HP and may potentially respond to steroids. She was started on Solu-Medrol but she can be changed to prednisone for treatment. - discussed with the patient that we are suspecting interstitial lung disease and in particular hypersensitivity pneumonitis secondary to her bird exposure. We discussed that treatment is avoidance of the antigen, which would include getting rid of her birds at home. - We also discussed that if she has an acute or subacute component that she may benefit from glucocorticoids however, chronic HP is less responsive to steroids. She can be treated with prednisone 40 mg daily and we did discuss that she would likely need a longer tapering course of prednisone. Would continue with prednisone 40mg for the next 2-3 weeks followed by slow tapering over the next 1-3 months, perhaps longer depending on her symptom improvement. Would like to review images of her outside CT to examine if she does have evidence of a more acute inflammatory component such as ground-glass or if there is more of chronic HP with fibrosis on CT - The patient will need followup as an outpatient including pulmonary function testing to monitor her lung function and response to treatment. - The patient will need monitoring for side effects of glucocorticoid including monitoring of her glucose, eye exams for monitoring of ocular pressure as she reports history of borderline glaucoma, as well as other side effects including weight gain, edema, gastritis and skin changes. - The patient will likely need repeat CT after being on treatment in 3 months. - She will need nasal cannula oxygen supplementation with exertion. Would also need to monitor nocturnal oximetry to see if she requires nasal cannula oxygen at night as well. Would also get an echocardiogram to evaluate for pulmonary hypertension which may be in the setting of her chronic hypoxemic lung disease. - Will follow up the results of her serology testing for the interstitial lung disease. If her HP panel is negative it still does not rule out a hypersensitivity reaction as the panel only tests for the most common antigens - The patient had mycoplasma IgG, which was positive but the IgM was negative, suggesting previous exposure. She also completed a course of doxycycline as an outpatient and she has no leukocytosis currently. Would discontinue (DC) antibiotics. Deep venous thrombosis (DVT) prophylaxis: Heparin. CODE STATUS: FULL CODE. MTDD
[2020-02-08 14:00] VITALS: BP 107/73
[2020-02-08] MEDS ORDERED: ALBUTEROL 90 MCG/ACT 8GM HFA INHALER INH PRN (16:30)
[2020-02-08] MEDS: predniSONE 20 MG TAB PO SCH (17:56)
[2020-02-08] MEDS: OMEGA-3 1000MG CAPSULE PO SCH (17:56)
[2020-02-08] MEDS: MELOXICAM (MOBIC) 7.5 MG TAB PO SCH (17:57)
[2020-02-08] MEDS: CYANOCOBALAMIN 500 MCG TAB PO SCH (17:57)
[2020-02-08] MEDS: VITAMIN D 1,000 INTERNATIONAL UNITS TABLET PO SCH (17:57)
[2020-02-08 22:00] VITALS: BP 118/78
[2020-02-09 06:00] VITALS: BP 116/66
[2020-02-09 06:05] LABS: HEMATOCRIT 37.9 % (36.0-47.0); HEMOGLOBIN 12.1 g/dl (12.0-15.5); MEAN CORPUSCULAR HGB CONC 31.9 g/dl (32.0-36.5); PLATELET COUNT, AUTOMATED 198 10^3/uL (150-450); RED BLOOD COUNT 4.03 10^6/uL (4.00-5.40)
[2020-02-09 06:25] LABS: BLOOD UREA NITROGEN 16 MG/DL (7-18); CALCIUM LEVEL 8.4 MG/DL (8.8-10.2); CARBON DIOXIDE LEVEL 28 MEQ/L (21-32); CHLORIDE LEVEL 106 MEQ/L (98-107); CREATININE FOR GFR 0.73 MG/DL (0.55-1.30); GLOMERULAR FILTRATION RATE > 60.0 (>45); GLUCOSE, FASTING 119 MG/DL (70-100); MAGNESIUM LEVEL 2.4 MG/DL (1.8-2.4); POTASSIUM SERUM 4.9 MEQ/L (3.5-5.1); SODIUM LEVEL 139 MEQ/L (136-145)
[2020-02-09] MEDS: CYANOCOBALAMIN 500 MCG TAB PO SCH (08:10)
[2020-02-09] MEDS: GABAPENTIN 100 MG CAP PO SCH ×3 (08:10→20:26)
[2020-02-09] MEDS: OMEPRAZOLE 20 MG CAP PO SCH ×2 (08:10→20:26)
[2020-02-09] MEDS: VITAMIN D 1,000 INTERNATIONAL UNITS TABLET PO SCH (08:10)
[2020-02-09] MEDS: MELOXICAM (MOBIC) 7.5 MG TAB PO SCH (08:10)
[2020-02-09] MEDS: predniSONE 20 MG TAB PO SCH (08:10)
[2020-02-09] MEDS: OMEGA-3 1000MG CAPSULE PO SCH (08:10)
[2020-02-09] MEDS: SERTRALINE HCL 50 MG TAB PO SCH (08:10)
[2020-02-09] MEDS: DOCUSATE SODIUM 100 MG CAP PO SCH ×2 (08:10→20:26)
[2020-02-09] MEDS: HEPARIN SOD (PORCINE) 5000UNITS/ML VIAL (J1644 PER 1000UNITS) SQ SCH ×2 (08:11→20:25)
[2020-02-09] MEDS: guaiFENesin SYRUP 200 MG/10 ML UDC PO PRN (08:24)
[2020-02-09] MEDS ORDERED: AZITHROMYCIN 250MG TABLET PO SCH (09:00)
[2020-02-09] MEDS ORDERED: PANTOPRAZOLE 40MG TAB (PROTONIX) PO SCH (09:00)
--- NOTE | 2020-02-09 12:16 | IPNPDOC ---
Text Note Date of Service The patient was seen on 02/09/20. NOTE Subjective: -Doing well this morning, mild hypoxemia overnight to 1L, otherwise stable -Was seen by pulm, suspecting hypersensitivity pneumonitis 2/2 to patient's birds. Patient's family working on removing the family birds for her potential discharge home tomorrow after setting up home O2. Objective: VITAL SIGNS: See below GENERAL: NAD, sitting up in bed HEENT: Atraumatic, normocephalic, pupils equal round and reactive, no JVD CARDIOVASCULAR: RRR, no mrg RESPIRATORY: Persistent dry crackles in posterior lower lung ventura, clear upper ventura, no wheezing or rhonchi ABDOMINAL: Bowel sounds wnl, abdomen soft and nontender EXTREMITIES: No lower extremity edema or calf tenderness, WWP NEUROLOGICAL: no gross focal deficits appreciated PSYCHOLOGICAL: Appropriate LABORATORY DATA: Stable CBC and BMP wnl covid 19 was negative Had +IgG for mycoplasma with -IgM has pending extended rheum and HP serologies MICROBIOLOGY: Please see below. ASSESSMENT: 69-year-old W with RA who presented for dyspnea and wheezing on exertion, dry cough and CT of the chest with peripheral fibrosis found to be covid-19 negative without erendira evidence of PNA or diagnosis of COPD or asthma with ongoing exertional hypoxemia and persistent dry cough now placed on prednisone for likely HP per pulmonology evaluation. PROBLEMS: Dyspnea, hypoxemia and wheezing on exertion most likely 2/2 hypersensitivity pneumonitis 2/2 family birds vs. rheumatologically mediated progressive fibrosis Negative for Covid-19, and d-dimer wnl with low probability for PE -Denies any recent fevers and recently treated with 10d of doxycycline -[place] labs showed Influenza A/B negative, VBG was normal pH, troponin normal, lactic acid within normal limits with no abnormal CBC or BMP findings. -CT of the chest showed increased interstitial markings and bibasilar fibrosis, per report, have to call [facility] for disk -consulted pulm, ordered rheum and broader HP labs, and recommended empiric tx with prolonged prednisone for likely hypersensitivity pneumonitis 2/2 to patient's birds -Day #2 of prednisone 40 day -No antibiotics without leukocytosis, constitutional symptoms and negative procalcitonin. Showing +IgG for mycoplasma with negative IgM. Was recently tx with 10d of doxycycline. -Will follow up with pulm at discharge for PFTs and optimization -Duonebs PRN + benzonatate + Robitussin -Titrate oxygen above 92% Low back pain - Continue with home gabapentin and acetaminophen PRN. restarted home meloxicam GERD. Continue home omeprazole Depression. Continue with home sertraline DVT PROPHYLAXIS: Heparin 40 QD DISPOSITION: medsurg, pending set up form home oxygen. Likely discharge home on Monday VS,Fishbone, I+O VS, Fishbone, I+O Laboratory Tests 02/09/20 05:50 Vital Signs Date Time Temp Pulse Resp B/P (MAP) Pulse Ox O2 Delivery O2 Flow Rate FiO2 02/09/20 06:00 97.4 77 16 116/66 (83) 96 Nasal Cannula 1.0 I&O- Last 24 Hours up to 6 AM 02/09/20 06:00 Intake Total 600 ml Output Total 1075 ml Balance -475 ml GENO REYES MD Feb 09, 2020 07:23
--- NOTE | 2020-02-09 12:50 | IPN ---
DATE: 02/09/2020 The patient was seen and examined this morning during bedside rounds. She states her breathing has been relatively unchanged. She continues to have some shortness of breath with exertion and continues to have some nonproductive cough. She denies any chest pain currently. Does not have any fevers or chills. No increased lower extremity mode no orthopnea. No nausea or vomiting. PHYSICAL EXAMINATION: Temperature is 97.4, pulse 77, respirations 16, blood pressure 116/66, O2 sat 96% on room air. Input 2.4 liters, output 1.8 liters, net positive 560 mL. GENERAL: The patient is a pleasant female who is sitting in bed in no acute respiratory distress. She is speaking in complete sentences, not using accessory muscles for respiration. HEENT: Normocephalic, atraumatic. Pupils are round, reactive to light. Neck is supple. There is no palpable adenopathy. Trachea is midline. There are moist mucous membranes. CARDIOVASCULAR: Regular rate and rhythm normal S1, S2, no murmurs appreciated. RESPIRATORY: There are crackles noted bilaterally at the bases of the lungs. No wheezing or rhonchi. ABDOMEN: Abdomen is soft, nontender, nondistended. No palpable mass. EXTREMITIES: There are varicose veins noted but no significant lower extremity edema bilaterally. There is no clubbing noted. SKIN: There is no rashes or skin lesions noted. She has some cold extremities and fingers with some mild cyanotic discoloration. LABS: WBC 7.0, hemoglobin is 12.1, platelets are 198. Chemistry: Sodium is 139, potassium 4.9, chloride is 106, bicarb 28, BUN 16, creatinine 0.73, glucose is 119. Hypersensitivity pneumonitis panel pending. ASSESSMENT/PLAN: Ms. Rivera is a 69-year female history of arthritis, gastroesophageal reflux disease, hyperlipidemia who presented with increasing shortness of breath with exertion as well as a nonproductive cough for the past few weeks. The patient had noted symptoms that have been ongoing for the past 6 months to a year with worsening in particular in the past month and half. The patient was treated as an outpatient for possible pneumonia with doxycycline without significant proven in her dyspnea. She did also have COVID testing as well as an outpatient with the total now of three tests, which were negative. She had an a CT chest at an outside hospital which we do not have the images of. There prelim radiology report suggests a combination of acute on chronic disease with some possible fibrosis. The patient also reports a significant history of having multiple birds at home about 70 or more. Her started acquiring birds and as well as breeding them approximately 2 or 3 years ago. Given her imaging as well as clinical exam with crackles bilaterally, suspect the patient has a component of chronic hypersensitivity pneumonitis with possible acute component on top. The patient was started on steroids initially Solu-Medrol and transitioned to prednisone for treatment. - The patient likely with chronic HP secondary to bird exposure with a possible acute inflammatory component. Will followup with getting imaging of her outside CT to help examine to see if she does have evidence of a more acute inflammatory component with more ground-glass or if it appears to be more chronic HP with fibrosis on CT. - The patient's interstitial lung disease serology testing is still pending including the ANCA, CCP, [id number], anti PL7 and scleroderma antibodies as well as the U3 - DEICER KIT ASSEMBLER anticentromere and antimitochondrial antibodies. Her hypersensitivity pneumonitis panel is also pending still. - Will continue the patient on prednisone 40 mg daily and will continue her on 40 mg for the next 2-3 weeks followed by a slow taper over the next 1-3 months depending on her symptoms. The patient will likely need a repeat CT after being on treatment in 2-3 months. - We did discuss that she will need outpatient monitoring for side effects of glucocorticoid including monitoring her glucose levels, exam for glaucoma as well as other side effects including weight gain edema gastritis, skin changes and mood disturbances. - The patient will need outpatient followup with pulmonary for pulmonary function tests (PFTs) to continue monitoring her lung function and response to treatment. - Will continue with nasal cannula oxygen supplementation with exertion. Would also get echocardiogram to evaluate for pulmonary hypertension which would likely be in the setting of chronic hypoxemic lung disease. Deep venous thrombosis (DVT) prophylaxis heparin. CODE STATUS: FULL CODE. Please do not hesitate to call if any further questions or concerns. The patient can followup with us as an outpatient with PFTs prior to her followup appointment in 1-2 weeks.
[2020-02-09 14:00] VITALS: BP 127/78
[2020-02-09 22:00] VITALS: BP 114/71
[2020-02-10 05:54] LABS: HEMATOCRIT 37.9 % (36.0-47.0); HEMOGLOBIN 12.2 g/dl (12.0-15.5); MEAN CORPUSCULAR HEMOGLOBIN 30.2 pg (27.0-33.0); MEAN CORPUSCULAR HGB CONC 32.2 g/dl (32.0-36.5); MEAN CORPUSCULAR VOLUME 93.8 fl (80.0-96.0); PLATELET COUNT, AUTOMATED 205 10^3/uL (150-450); RED BLOOD COUNT 4.04 10^6/uL (4.00-5.40); WHITE BLOOD COUNT 10.1 10^3/uL (4.0-10.0)
[2020-02-10 06:14] LABS: BLOOD UREA NITROGEN 17 MG/DL (7-18); CALCIUM LEVEL 8.2 MG/DL (8.8-10.2); CARBON DIOXIDE LEVEL 27 MEQ/L (21-32); CHLORIDE LEVEL 106 MEQ/L (98-107); CREATININE FOR GFR 0.73 MG/DL (0.55-1.30); GLOMERULAR FILTRATION RATE > 60.0 (>45); GLUCOSE, FASTING 81 MG/DL (70-100); MAGNESIUM LEVEL 2.4 MG/DL (1.8-2.4); POTASSIUM SERUM 4.2 MEQ/L (3.5-5.1); SODIUM LEVEL 139 MEQ/L (136-145)
[2020-02-10 08:00] VITALS: O2SAT 97
[2020-02-10] MEDS: GABAPENTIN 100 MG CAP PO SCH (08:22)
[2020-02-10] MEDS: VITAMIN D 1,000 INTERNATIONAL UNITS TABLET PO SCH (08:22)
[2020-02-10] MEDS: MELOXICAM (MOBIC) 7.5 MG TAB PO SCH (08:22)
[2020-02-10] MEDS: predniSONE 20 MG TAB PO SCH (08:23)
[2020-02-10] MEDS: SERTRALINE HCL 50 MG TAB PO SCH (08:23)
[2020-02-10] MEDS: OMEGA-3 1000MG CAPSULE PO SCH (08:23)
[2020-02-10] MEDS: CYANOCOBALAMIN 500 MCG TAB PO SCH (08:23)
[2020-02-10] MEDS: DOCUSATE SODIUM 100 MG CAP PO SCH (08:23)
[2020-02-10] MEDS: OMEPRAZOLE 20 MG CAP PO SCH (08:23)
[2020-02-10] MEDS: HEPARIN SOD (PORCINE) 5000UNITS/ML VIAL (J1644 PER 1000UNITS) SQ SCH (08:26)
[2020-02-10] MEDS ORDERED: GUAI100S51 PO (08:41)
[2020-02-10] MEDS ORDERED: PRED20TA PO (08:41)
[2020-02-10 12:15] VITALS: O2SAT 97
[2020-02-10 12:20] VITALS: O2SAT 84
[2020-02-10 12:23] VITALS: O2SAT 92
--- NOTE | 2020-02-10 13:26 | DS.PDOC ---
Discharge Summary General Date of Admission Feb 05, 2020 at 21:03 Date of Discharge 02/10/2020 Attending Physician: GENO REYES MD Specialist/Consultants Involve: JOHANNA LAYNE MD Discharge Summary PROCEDURES PERFORMED DURING STAY: None ADMITTING DIAGNOSES: 1. Dsypnea DISCHARGE DIAGNOSES: 1. Probable hypersensitivity pneumonitis 2. Osteoarthritis. 3. Gastroesophageal reflux disease. 4. Depression. 5. Hyperlipidemia. COMPLICATIONS/CHIEF COMPLAINT: Acute Hypoxia c/f Golden Virus. HISTORY OF PRESENT ILLNESS: 69 -year-old W with a history of osteoarthritis, hyperlipidemia and gastroesophageal reflux disease who was transferred from [facility] to [facility] for ongoing dyspnea, initially reported as acute but later established to have been worsening over ~1 year. While at [place] she had an abnormal CT chest and there was concern for covid-19 and she was transferred to [facility]. HOSPITAL COURSE: At [facility] her Covid-19 PCR was negative, CXR was without opacities, vascular congestion or pleural effusions, procalcitonin negative, d-dimer wnl, sputum negative and atypical testing notable for positive IgG for mycoplasma with negative IgM. On further history, she reported a recent 10d course of doxycycline with mild improvement of symptoms, but stated that she had been noticing symptoms for the past 6 months to a year of shortness of breath with exertion. She has been told by friends and family that her lips occasionally will turn bluish purple discoloration she will also notice this purplish blue discoloration in her fingers as well. The patient states in the past 6 weeks, however, she has noticed progressively worsening shortness of breath and dyspnea with exertion with an incessant dry cough. In addition to the doxycycline, her PCP had also prescribed her albuterol rescue inhaler to be used as needed and Tessalon Perles to be used for her cough. At [facility] the patient was noted to not have any leukocytosis, d-dimer was negative and as previously noted, covid-19 negative. She was normotensive and at rest on room air with exertional hypoxemia. She was empirically started on Solu-Medrol 40 mg every 12 hours, as well as Tessalon Perles and DuoNebs as needed without much improvement. 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 Pulmonology recommended prolonged steroid for presumed hypersensitivity pneumonitis and removal of the birds from the home, and ordered broader autoimmune vs. hypersensitivity penumonitis labs that are still pending. Pulmonology also recommended home oxygen for use with exertion. She is now being discharged home with pulmonology follow up, prednisone 40mg that she will take for several weeks and will be tapered by pulmonology in clinic as this will be a course of a few months. DISCHARGE MEDICATIONS: Please see below. ALLERGIES: Please see below. PHYSICAL EXAMINATION ON DISCHARGE: VITAL SIGNS: Please see below. GENERAL: NAD, sitting up in bed HEENT: NCAT, PERRLA, EOMI, MMM CARDIOVASCULAR: RRR, no mrg RESPIRATORY: Persistent dry crackles in posterior lower lung ventura, clear upper ventura, no wheezing or rhonchi ABDOMINAL: Bowel sounds wnl, abdomen soft and nontender EXTREMITIES: No lower extremity edema or calf tenderness, WWP NEUROLOGICAL: no gross focal deficits appreciated PSYCHOLOGICAL: Appropriate LABORATORY DATA: Please see below. IMAGING: CXR: The cardiac silhouette is magnified by technique. Mild cardiomegaly cannot be ruled out. The lung ventura are less than optimally aerated. This crowds the vascularity further limiting the exam. The interstitial markings are slightly diffusely increased. No definite acute patchy parenchymal opacities or pleural effusions seem to have developed on this limited portable exam. The osseous structures are stable and intact. PROGNOSIS: Good ACTIVITY: As tolerated DIET: Regular DISCHARGE PLAN: Home with oxygen for use with exertion, with goal saturation >90%, prednisone 40 daily that will be tapered by pulmonology in the outpatient setting, abdirahman amezcua, continue rescue albuterol inhaler. DISPOSITION: Home DISCHARGE INSTRUCTIONS: 1. Home with oxygen for use with exertion, with goal saturation >90%, prednisone 40 daily that will be tapered by pulmonology in the outpatient setting, proon vinhs, continue rescue albuterol inhaler. ITEMS TO FOLLOWUP ON ON OUTPATIENT: 1. Pulmonology follow up DISCHARGE CONDITION: Stable TIME SPENT ON DISCHARGE: 51 minutes. Vital Signs/I&Os Vital Signs Date Time Temp Pulse Resp B/P (MAP) Pulse Ox O2 Delivery O2 Flow Rate FiO2 02/09/20 22:00 98.3 63 17 114/71 (85) 93 Room Air 02/09/20 06:00 1.0 I&O- Last 24 Hours up to 6 AM 02/10/20 05:59 Intake Total 2320 ml Output Total 1300 ml Balance 1020 ml Laboratory Data Labs 24H Laboratory Tests 2 02/10/20 05:21: Nucleated Red Blood Cells % (auto) 0.0, Anion Gap 6L, Glomerular Filtration Rate > 60.0, Calcium Level 8.2L, Magnesium Level 2.4 CBC/BMP Laboratory Tests 02/10/20 05:21 Microbiology Microbiology 02/05/20 Blood Culture - Preliminary, Resulted No Growth after 72 hours. All specime... 02/05/20 Blood Culture - Preliminary, Resulted No Growth after 72 hours. All specime... Discharge Medications Scheduled Cholecalciferol (Vitamin D3) (Vitamin D3) 1,000 Unit Tablet, 1,000 UNITS PO DAILY, (Reported) Cyanocobalamin (Vitamin B-12) (Vitamin B-12) 1,000 Mcg Tablet, 1,000 MCG PO DAILY, (Reported) Docusate Sodium (Stool Softener) 100 Mg Capsule, 100 MG PO BID, (Reported) Gabapentin (Gabapentin) 100 Mg Capsule, 100 MG PO TID, (Reported) Magnesium Oxide (Magnesium) 400 Mg Capsule, 400 MG PO DAILY, (Reported) Meloxicam (Meloxicam) 15 Mg Tablet, 15 MG PO DAILY, (Reported) [place]-3 Fatty Acids/Fish Oil (Fish Oil 1,000 mg Capsule) 1 Each Capsule, 1,000 MG PO DAILY, (Reported) Omeprazole (Omeprazole) 20 Mg Capsule.dr, 20 MG PO BID, (Reported) Prednisone (Prednisone) 20 Mg Tablet, 40 MG PO DAILY Sertraline HCl (Sertraline HCl) 50 Mg Tablet, 50 MG PO DAILY, (Reported) Vit C/E/Zn/Coppr/Lutein/Zeaxan (Preservision Areds 2 Softgel) 1 Each Capsule, 1 CAP PO BID, (Reported) Scheduled PRN Albuterol Sulfate (Albuterol Sulfate Hfa) 8.5 Gm Hfa.aer.ad, 2 PUFF INH Q4H PRN for SHORTNESS OF BREATH, (Reported) Benzonatate (Benzonatate) 100 Mg Capsule, 100 MG PO TID PRN for COUGH, (Reported) PATIENT TAKES ONE TO TWO CAPSULES Guaifenesin (Guaifenesin) 100 Mg/5 Ml Liquid, 10 ML PO Q6HP PRN for COUGH Allergies Coded Allergies: Quinolones (Verified Allergy, Intermediate, HIVES, 02/05/20) codeine (Unverified Adverse Reaction, Unknown, INCREASED PAIN, 02/05/20) GENO REYES MD Feb 10, 2020 08:34
[2020-02-12 10:16] LABS: ANTI CENTROMERE ANTIBODY <0.2 AI (0.0-0.9); ANTI JO-1 ANTIBODIES <0.2 AI (0.0-0.9); ANTI SCLERODERMA ANTIBODIES <0.2 AI (0.0-0.9); ANTI-MITOCHONDRIAL ANTIBODY <20.0 Units (0.0-20.0); ANTINUCLEAR ANTIBODIES DIRECT Negative (Negative); ASPERGILLUS FUMIGATUS AB Negative (Negative); AUREOBASIDIUM PULLULANS Negative (Negative); MICROPOLYSPORA FAENI AB Negative (Negative); PIGEON SERUM AB Negative (Negative); THERMOACTINOMYCES SACCHARI Negative (Negative); THERMOACTINOMYCES VULGARIS Negative (Negative)
== END 2020-02-10 14:39 | disposition home or self-care (01) | DRG 198 ==
LOC: M ICU 21:03 → M MSPAV 02-06 10:00
PROVIDERS: ADMIT Internal Medicine; ATTEND Internal Medicine
DX: J67.2 Bird fancier's lung (principal); F32.9 Major depressive disorder, single episode, unspecified; M19.90 Unspecified osteoarthritis, unspecified site; K21.9 Gastro-esophageal reflux disease without esophagitis; J84.10 Pulmonary fibrosis, unspecified; M54.5 Low back pain; E78.5 Hyperlipidemia, unspecified; N30.11 Interstitial cystitis (chronic) with hematuria; Z98.41 Cataract extraction status, right eye; Z87.81 Personal history of (healed) traumatic fracture; Z79.1 Long term (current) use of non-steroidal anti-inflammatories (NSAID); Z79.899 Other long term (current) drug therapy; Z88.5 Allergy status to narcotic agent; Z88.1 Allergy status to other antibiotic agents; Z98.42 Cataract extraction status, left eye

== ENCOUNTER → 2020-03-03 | Outpatient (CLI) | payer MEDICARE ==
[~2020-03-03] MED LIST changes: +ALBU8.5H INH; +BENZ-18 PO; -CONRAY-43 43% 50ML VIAL (Q9960) As Ordered ONE; +CYAN100050 PO; +DSS100CA PO; +FISH1000 PO; +GABA-1171 PO; +GUAI100S51 PO; +MAGN400C2 PO; +MELO15TA28 PO; +OMEP-218 PO; +PRED20TA PO; +PRES10CA2 PO; -PROHANCE 279.3MG/ML 5ML VIAL (A9576) As Ordered ONE; +SERT50TA29 PO; +VITAD1000T PO
--- NOTE | 2020-03-03 09:24 | PFTRPT ---
Height: 64.00 Inches Weight: 168.00 Lbs BSA: 1.82 Diagnosis: J84.9 DATE OF STUDY: 03/03/2020 ORDERED BY: Dr. Robbins Spirometry: Pre and post bronchodilator study of excellent technical quality. Forced vital capacity normal. FEV1 in proportion. Obstructive index is, therefore, normal. Flow Volume Loop: Expiratory limb of the flow volume loop is normal. No significant bronchodilator response identified. Lung Volumes: Total lung capacity normal. Residual volume is in proportion. Diffusing Capacity: Diffusing capacity is significantly reduced but does correct for alveolar volume. Hemoglobin: Hemoglobin acceptable at 13.2. Airway Mechanics: Airway resistance and conductance are normal. IMPRESSION: Decline in the absolute diffusing capacity requires clinical correlation. MTDD
== END ==
LOC: M CARPUL 08:33
PROVIDERS: ATTEND Internal Medicine Pulmonary Disease
DX: J84.9 Interstitial pulmonary disease, unspecified (principal)

== ENCOUNTER → 2020-03-24 | Outpatient (CLI) | payer MEDICARE ==
--- NOTE | 2020-03-24 17:58 | REP ---
CT CHEST WITHOUT IV CONTRAST: CT chest performed without IV contrast. In addition to routine axial images, thin axial images are obtained with 1 mm slice thickness in the prone and supine positions with inspiration and expiration. Sagittal and coronal reconstruction images are performed. There is moderate diffuse interstitial fibrosis, slightly greater inferiorly compared to superiorly. There is a subpleural predominance. There is mild diffuse bronchiectasis. There is mild honeycombing in the posterior-inferior lower lobes bilaterally. A subpleural nodular opacity in the right upper lobe is stable compared to a prior CT of the chest performed in 2015. No new suspicious nodule is seen. There is a tiny calcified granuloma in the left upper lobe. There is mild thickening along the left major fissure. There is also mild thickening along the right major fissure. There are subcentimeter mediastinal lymph nodes present. No axillary adenopathy is seen. The heart is not enlarged. There is no pleural or pericardial effusion. Thoracic aorta is not dilated. There is a small hiatal hernia. There are degenerative changes of the spine. IMPRESSION: Moderate diffuse interstitial fibrosis has progress since 2015, as discussed above. There is a subpleural predominance. There is mild diffuse bronchiectasis. There is mild honeycombing posteriorly and inferiorly. Electronically Signed by Timothy Cox MD 03/26/2020 10:25 A
== END ==
LOC: M RAD 13:31
PROVIDERS: ATTEND Internal Medicine Pulmonary Disease
DX: J84.9 Interstitial pulmonary disease, unspecified (principal)

== ENCOUNTER → 2020-06-02 | Outpatient (CLI) | payer MEDICARE ==
[~2020-06-02] MED LIST changes: +D31000TA2 PO; -VITAD1000T PO
--- NOTE | 2020-06-26 14:42 | SLEEPCENT ---
DATE: 06/02/2020 ORDERED BY: Dr. Robbins Nocturnal polysomnography was performed for evaluation of sleep physiology in this patient with a history of excessive somnolence and nonrestorative sleep, who has comorbidities of interstitial lung disease. There was 8 hours and 15 minutes of data reviewed. There was 420.5 minutes of sleep identified. Sleep latency was prolonged at 25.5 minutes. REM latency was prolonged at 347 minutes. Sleep architecture showed poor progression early in the study. There were two REM cycles later. Overall sleep efficiency was 85.9%. The patient's electrocardiogram showed a sinus rhythm with an average heart rate of 65 beats per minute. Rate ranged 55-80. EEG showed reasonable waveforms for wake and sleep. There were 226 respiratory events identified of 10 seconds in duration or greater for an apnea-hypopnea index of 32.2. The events were more frequently obstructive, but 37 mixed and central apneas were also scored. The events were not exclusive to sleep stage, more frequent, but not exclusive in the supine posture, and arousals from respiratory events were seen 6.6 times per hour. Oxygen desaturations were seen into the low 80s. There was some activity in the limb EMG leads, but arousals from limb events were few. IMPRESSION: Severe obstructive sleep apnea syndrome (G47.33). Apnea-hypopnea index 32.2. RECOMMENDATION: The patient should be encouraged to return to the sleep disorder center for pressure therapy. In the interim, alcohol and sedative avoidance should be practiced and caution exercised during the operation of motor vehicles. MTDD
== END ==
LOC: M SLEEP 20:00
PROVIDERS: ATTEND Internal Medicine Pulmonary Disease
DX: G47.33 Obstructive sleep apnea (adult) (pediatric) (principal)

== ENCOUNTER → 2020-07-15 | Outpatient (CLI) | payer MEDICARE ==
--- NOTE | 2020-07-19 19:18 | SLEEPCENT ---
DATE: 07/15/2020 ORDERED BY: Dr. Robbins Nocturnal polysomnography was performed for the titration of pressure therapy in this patient with obstructive sleep apnea syndrome, apnea-hypopnea index of 32.2. For testing, a ResMed AirFit F30 full-face mask of small size was used. There was 4 cm of water pressure applied to the circuit, and the lights were extinguished. There was 7 hours and 39 minutes of data reviewed. There was 355.5 minutes of sleep identified. Sleep latency was normal at 29 minutes. REM latency was delayed at 190 minutes. Sleep architecture was fair with some fragmentation persisting. There were two to three REM cycles noted. Overall sleep efficiency was 78%. The electrocardiogram showed a sinus rhythm with an occasional PVC. Average heart rate was 58 beats per minute. EEG showed reasonably normal waveforms for wake and sleep. Respiratory events were reasonable palliated with CPAP at a pressure of +10; however, time at pressure was somewhat limited. There was also some significant limb activity noted early in the study. The limb movement arousal index on this occasion was 9.6. IMPRESSION: Obstructive sleep apnea syndrome (G47.33). RECOMMENDATION: Nightly use of pressure therapy, 10 cm of water. MTDD
== END ==
LOC: M SLEEP 20:00
PROVIDERS: ATTEND Internal Medicine Pulmonary Disease
DX: G47.33 Obstructive sleep apnea (adult) (pediatric) (principal)

== ENCOUNTER → 2020-09-08 | Outpatient (CLI) | payer MEDICARE | LOC: M LABSMTC 12:33 | PROVIDERS: ATTEND Family Medicine | DX: Z20.828 Contact with and (suspected) exposure to other viral communicable diseases (principal) ==

== ENCOUNTER 2021-02-26 17:29 | Inpatient (IN) | payer MEDICARE ==
[~2021-02-26] VITALS: Ht 162.6 cm; Wt 83.2 kg
[2021-02-26 18:14] LABS: BASO % 0.6 % (0.0-1.0); EOS # 0.2 10^3/uL (0.0-0.5); EOS % 3.1 % (0.0-3.0); HEMATOCRIT 41.3 % (36.0-47.0); LYMPH # 1.7 10^3/uL (1.5-5.0); LYMPH % 25.8 % (24.0-44.0); MEAN CORPUSCULAR HGB CONC 31.5 g/dl (32.0-36.5); MEAN CORPUSCULAR VOLUME 98.6 fl (80.0-96.0); MONO # 0.8 10^3/uL (0.0-0.8); MONO % 11.9 % (2.0-8.0); NEUTROPHILS # 3.8 10^3/uL (1.5-8.5); NEUTROPHILS % 58.3 % (36.0-66.0); PLATELET COUNT, AUTOMATED 171 10^3/uL (150-450); RED BLOOD COUNT 4.19 10^6/uL (4.00-5.40); WHITE BLOOD COUNT 6.5 10^3/uL (4.0-10.0)
[2021-02-26 18:34] LABS: INR 1.1; PROTHROMBIN TIME 14.4 SECONDS (12.5-14.3)
[2021-02-26 18:35] LABS: PARTIAL THROMBOPLASTIN TIME 28.9 SECONDS (24.2-38.5)
[2021-02-26 18:47] LABS: ALBUMIN 3.9 GM/DL (3.2-5.2); ALT/SGPT 21 U/L (12-78); BILIRUBIN,DIRECT 0.2 MG/DL (0.0-0.2); BILIRUBIN,TOTAL 0.4 MG/DL (0.2-1.0); BLOOD UREA NITROGEN 13 MG/DL (7-18); CALCIUM LEVEL 9.1 MG/DL (8.8-10.2); CARBON DIOXIDE LEVEL 29 MEQ/L (21-32); CHLORIDE LEVEL 107 MEQ/L (98-107); CK-MB VALUE MASS < 1.0 NG/ML (<3.6); CPK CREATINE PHOSPHOKINASE 78 U/L (26-192); CREATININE FOR GFR 0.76 MG/DL (0.55-1.30); FREE T4 1.03 NG/DL (0.76-1.46); GLOMERULAR FILTRATION RATE > 60.0 (>39); GLUCOSE, FASTING 85 MG/DL (70-100); LIPASE 66 U/L (73-393); MB/CK RELATIVE INDEX 1.28 (< OR =4); POTASSIUM SERUM 4.2 MEQ/L (3.5-5.1); SODIUM LEVEL 141 MEQ/L (136-145); TOTAL PROTEIN 7.2 GM/DL (6.4-8.2); TROPONIN I < 0.02 NG/ML (< 0.10)
--- NOTE | 2021-02-26 19:02 | REP ---
INDICATION: CHEST PAIN. COMPARISON: 02/07/2020. TECHNIQUE: Single portable AP view of the chest was performed. FINDINGS: There is no acute infiltrate or pulmonary edema. Lungs are clear. The heart is not significantly enlarged. The mediastinal silhouette is unremarkable. The visualized osseous structures are intact. IMPRESSION: No acute pulmonary disease. <Electronically signed by Timothy Cox > 02/26/21 [id number]
[2021-02-26] MEDS ORDERED: ISOVUE-370 76% 100ML VIAL As Ordered ONE (21:12)
[2021-02-26 21:40] VITALS: BP 142/88
--- NOTE | 2021-02-26 22:06 | REPVR ---
PROCEDURE INFORMATION: Exam: CT Head Without Contrast Exam date and time: 02/26/2021 9:35 PM Age: 71 years old Clinical indication: Pain; Headache not specified; Additional info: Headache weak TECHNIQUE: Imaging protocol: Computed tomography of the head without contrast. Radiation optimization: All CT scans at this facility use at least one of these dose optimization techniques: automated exposure control; mA and/or kV adjustment per patient size (includes targeted exams where dose is matched to clinical indication); or iterative reconstruction. COMPARISON: No relevant prior studies available. FINDINGS: Brain: No intracranial mass, mass effect or midline shift. No acute intracranial hemorrhage. No CT evidence of acute cortical infarct. Punctate remote lacunar infarct, right internal capsule Ventricles, cisterns, and sulci are normal in size for age. Bones/joints: No calvarial fracture or destructive process. Paranasal sinuses: Imaged paranasal sinuses are normally aerated. Mastoid air cells: Mastoid air cells and middle ear structures are normally aerated. Orbital cavity: Imaged orbits are unremarkable. Soft tissues: No focal extracranial soft tissue swelling. IMPRESSION: No acute or concerning focal intracranial abnormality. Electronically signed by: Hardeep Eagle On 02/26/2021 22:05:53 PM
--- NOTE | 2021-02-26 22:10 | REPVR ---
PROCEDURE INFORMATION: Exam: CTA Chest With Contrast Exam date and time: 02/26/2021 9:35 PM Age: 71 years old Clinical indication: Shortness of breath; Additional info: SOB TECHNIQUE: Imaging protocol: Computed tomographic angiography of the chest with contrast. 3D rendering (Not supervised by radiologist): MIP and/or 3D reconstructed images were created by the technologist. Radiation optimization: All CT scans at this facility use at least one of these dose optimization techniques: automated exposure control; mA and/or kV adjustment per patient size (includes targeted exams where dose is matched to clinical indication); or iterative reconstruction. Contrast material: ISOVUE 370; Contrast volume: 75 ml; Contrast route: INTRAVENOUS (IV); COMPARISON: CT ANGIO CHEST 04/20/2015 10:49 PM FINDINGS: Pulmonary arteries: There are no pulmonary emboli. Aorta: There is fusiform dilatation of the ascending thoracic aorta which measures 3.7 cm. maximally. There is no dissection or saccular component. Lungs: Calcified granuloma left upper lobe. Subpleural septal thickening most pronounced in the lower lung zones including honeycombing consistent with interstitial lung disease, stable in comparison to the prior study. Fissural nodule in the left lower lobe stable in appearance in comparison to the prior study, likely postinflammatory. Pleural spaces: Unremarkable. No pneumothorax. No pleural effusion. Heart: Unremarkable. No cardiomegaly. No pericardial effusion. Lymph nodes: Unremarkable. No enlarged lymph nodes. Bones/joints: The spine demonstrates mild degenerative changes. Diffuse decrease in bone mineralization consistent with osteoporosis or osteopenia. Soft tissues: Unremarkable. IMPRESSION: 1. Subpleural septal thickening most pronounced in the lower lung zones including honeycombing consistent with interstitial lung disease, stable in comparison to the prior study. 2. Fissural nodule in the left lower lobe stable in appearance in comparison to the prior study, likely postinflammatory. No follow-up suggested according to Fleischner guidelines based on lesion size. 3. There is fusiform dilatation of the ascending thoracic aorta which measures 3.7 cm. maximally. There is no dissection or saccular component. 4. There are no pulmonary emboli. Electronically signed by: Newton Isabel On 02/26/2021 22:09:46 PM
[2021-02-26] MEDS ORDERED: CETI-24 PO (22:53)
[2021-02-26] MEDS ORDERED: BREO1INH3 PO (22:53)
[2021-02-26] MEDS ORDERED: CYCL-707 PO (22:53)
[2021-02-26] MEDS ORDERED: THERTAB52 PO (22:53)
[2021-02-26] MEDS ORDERED: MOM 30ML SUSPENSION UDC PO PRN (23:05)
[2021-02-26] MEDS ORDERED: MAALOX 30 ML SUSP *UDC PO PRN (23:05)
[2021-02-26] MEDS ORDERED: ACETAMINOPHEN TAB 650MG DOSE (2X325MG) PO PRN (23:05)
[2021-02-26 23:45] VITALS: O2SAT 95
--- NOTE | 2021-02-26 23:46 | HPEPDOC ---
[facility] Medical History & Physical Date of Admission February 27, 2021 Date of Service: February 27, 2021 Primary Care Physician: Sushil Contreras MD Attending Physician: TALIB WASHINGTON MD History and Physical TIME OF SERVICE: 1147pm CHIEF COMPLAINT: dizziness HISTORY OF PRESENT ILLNESS: This 71 yr old F has been feeling dizzy tired and light headed for a few weeks; today when she checked her pulse oximeter her HR was in the 30s while her O2 sats were in the 80s so she came to the ER for evaluation. She denied having chest pain or LOC. REVIEW OF SYSTEMS: negative except as listed in HPI PAST MEDICAL/ SURGICAL HISTORY: IDL possibly Hyposensitivity Pneumonitis OA GERD. 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 HOME MEDICATIONS: Please see below. PHYSICAL EXAMINATION: Vital Signs Date Time Temp Pulse Resp B/P (MAP) Pulse Ox O2 Delivery O2 Flow Rate FiO2 02/26/21 17:30 97.5 79 22 138/86 (103) 97 Room Air GENERAL APPEARANCE: well nourished and developed/ NAD HEENT: EOMI CARDIOVASCULAR: RRR/NMRG /+ trace BLE edema LUNGS: CTAB on RA ABDOMEN: contour convex MUSCULOSKELETAL: ROMIx 4 INTEGUMENT: not pale or flushed NEUROLOGICAL: CN 2-12 intact /speech not dysarthric PSYCHIATRIC: A&Ox 3 /able to understand and follow all commands LABORATORY DATA: 02/26/21 18:05 Immature Granulocyte % (Auto) 0.3, Neutrophils (%) (Auto) 58.3, Lymphocytes (%) (Auto) 25.8, Monocytes (%) (Auto) 11.9H, Eosinophils (%) (Auto) 3.1H, Basophils (%) (Auto) 0.6, Neutrophils # (Auto) 3.8, Lymphocytes # (Auto) 1.7, Monocytes # (Auto) 0.8, Eosinophils # (Auto) 0.2, Basophils # (Auto) 0.0, Nucleated Red Blood Cells % (auto) 0.0, Prothrombin Time 14.4H, Prothromb Time International Ratio 1.10, Activated Partial Thromboplast Time 28.9, Anion Gap 5L, Glomerular Filtration Rate > 60.0, Calcium Level 9.1, Total Bilirubin 0.4, Direct Bilirubin 0.2, Aspartate Amino Transf (AST/SGOT) 24, Alanine Aminotransferase (ALT/SGPT) 21, Alkaline Phosphatase 116, Total Creatine Kinase 78, Creatine Kinase MB < 1.0, Creatine Kinase MB Relative Index 1.28, Troponin I < 0.02, Total Protein 7.2, Albumin 3.9, Albumin/Globulin Ratio 1.2, Lipase 66L, Thyroid Stimulating Hormone (TSH) 2.550, Free Thyroxine 1.03 IMAGING: Chest xray IMPRESSION: No acute pulmonary disease. CTA chest IMPRESSION: 1. Subpleural septal thickening most pronounced in the lower lung zones including honeycombing consistent with interstitial lung disease, stable in comparison to the prior study. 2. Fissural nodule in the left lower lobe stable in appearance in comparison to the prior study, likely postinflammatory. No follow-up suggested according to Fleischner guidelines based on lesion size. 3. There is fusiform dilatation of the ascending thoracic aorta which measures 3.7 cm. maximally. There is no dissection or saccular component. 4. There are no pulmonary emboli. CT head IMPRESSION: No acute or concerning focal intracranial abnormality. MICROBIOLOGY: Respiratory panel neg ASSESSMENT: is a 71 yr old F w IDL, OA, GERd, Depression & DLP who will be admitted for evaluation of presyncope of unclear cause. PLAN: 1 Presyncope Cause TBD Plan: admit to [facility] w telemetry 2 Transient Bradycardia ? Possibly due to heart block or gabapentin Plan: telemetry reduce dose of gabapentin from 200 to 100mg BID / trend trops / f/u w on recent Holter monitor results 3 Transient Hypoxemia called who doesnt think the patients IDL is flaring up Plan: continuous pulse ox / f/u VBG 4 IDL possibly Hyposensitivity Pneumonitis Plan: f/u w Dr Robbins as scheduled / Fluticasone/Vilanterol 5 OA Plan: Cyclobenzaprine, Meloxicam 6 Depression Sertraline 7 Obesity complicates care DVT px w Lovenox Dispo: home after less than 2 midnights stay LATE ENTRY #Hypercapnia Plan: referral for out pt sleep study Home Medications Scheduled Cetirizine HCl (Cetirizine HCl) 10 Mg Tablet, 10 MG PO QHS Cholecalciferol (Vitamin D3) (Vitamin D3) 1,000 Unit Tablet, 1,000 UNITS PO DAILY Cyanocobalamin (Vitamin B-12) (Vitamin B-12) 1,000 Mcg Tablet, 1,000 MCG PO DAILY Cyclobenzaprine HCl (Cyclobenzaprine HCl) 10 Mg Tablet, 10 MG PO TID Docusate Sodium (Stool Softener) 100 Mg Capsule, 100 MG PO BID Fluticasone/Vilanterol (Breo Ellipta 200-25 Mcg INH) 1 Each Blst.w.dev, 1 PUFF PO DAILY Gabapentin (Gabapentin) 100 Mg Capsule, 200 MG PO BID Magnesium Oxide (Magnesium) 400 Mg Capsule, 400 MG PO DAILY Meloxicam (Meloxicam) 15 Mg Tablet, 15 MG PO DAILY Multivitamin,Therapeutic (Thera-Tabs) 1 Each Tablet, 1 TAB PO DAILY [place]-3 Fatty Acids/Fish Oil (Fish Oil 1,000 mg Capsule) 1 Each Capsule, 1,000 MG PO DAILY Omeprazole (Omeprazole) 20 Mg Capsule.dr, 20 MG PO BID Sertraline HCl (Sertraline HCl) 50 Mg Tablet, 50 MG PO DAILY Vit C/E/Zn/Coppr/Lutein/Zeaxan (Preservision Areds 2 Softgel) 1 Each Capsule, 1 CAP PO BID Scheduled PRN Albuterol Sulfate (Albuterol Sulfate Hfa) 8.5 Gm Hfa.aer.ad, 2 PUFF INH Q4H PRN for SHORTNESS OF BREATH Allergies Coded Allergies: Quinolones (Verified Allergy, Intermediate, HIVES, 02/05/20) codeine (Unverified Adverse Reaction, Unknown, INCREASED PAIN, 02/05/20) TALIB WASHINGTON MD February 26, 2021 23:46
[2021-02-27 00:19] LABS: VENOUS BASE EXCESS 2.5 (-2.0-2.0); VENOUS HCO3 29.5 MEQ/L (23.0-27.0); VENOUS O2 SATURATION 58.4 % (60.0-80.0); VENOUS PARTIAL PRESSURE CO2 56.1 mmHg (38.0-50.0); VENOUS PARTIAL PRESSURE O2 30.9 mmHg (30.0-50.0); VENOUS PH 7.339 UNITS (7.330-7.430); VENOUS STANDARD HCO3 25.7 MEQ/L; VENOUS TOTAL CO2 31.2 MEQ/L (24.0-28.0)
[2021-02-27] MEDS ORDERED: ALBUTEROL 90 MCG/ACT 8GM HFA INHALER INH PRN (00:40)
[2021-02-27] MEDS ORDERED: CETIRIZINE (ZyrTEC) 10 MG TAB PO SCH (00:40)
[2021-02-27] MEDS: DOCUSATE SODIUM 100MG CAPSULE PO SCH ×2 (01:43→08:20)
[2021-02-27] MEDS: CYCLOBENZAPRINE 10MG TABLET PO SCH ×3 (01:43→15:54)
[2021-02-27] MEDS: OMEPRAZOLE 20 MG CAP PO SCH ×2 (01:43→08:21)
[2021-02-27] MEDS: GABAPENTIN 100 MG CAP PO SCH ×2 (01:43→08:21)
[2021-02-27 06:00] VITALS: BP 107/65
[2021-02-27 06:23] LABS: HEMATOCRIT 38.8 % (36.0-47.0); HEMOGLOBIN 12.3 g/dl (12.0-15.5); MEAN CORPUSCULAR HEMOGLOBIN 30.9 pg (27.0-33.0); MEAN CORPUSCULAR HGB CONC 31.7 g/dl (32.0-36.5); MEAN CORPUSCULAR VOLUME 97.5 fl (80.0-96.0); PLATELET COUNT, AUTOMATED 167 10^3/uL (150-450); RED BLOOD COUNT 3.98 10^6/uL (4.00-5.40)
[2021-02-27 07:02] LABS: BLOOD UREA NITROGEN 11 MG/DL (7-18); CALCIUM LEVEL 8.5 MG/DL (8.8-10.2); CARBON DIOXIDE LEVEL 29 MEQ/L (21-32); CHLORIDE LEVEL 107 MEQ/L (98-107); CREATININE FOR GFR 0.67 MG/DL (0.55-1.30); GLOMERULAR FILTRATION RATE > 60.0 (>39); GLUCOSE, FASTING 77 MG/DL (70-100); POTASSIUM SERUM 3.9 MEQ/L (3.5-5.1); SODIUM LEVEL 141 MEQ/L (136-145); TROPONIN I < 0.02 NG/ML (< 0.10)
[2021-02-27 08:00] VITALS: BP_SYST 104; BP_SYST 111; BP_SYST 113; BP_DIAS 71; BP_DIAS 74
[2021-02-27] MEDS ORDERED: FLUTICASONE HFA 110 MCG 12 GM INHALER (FLOVENT) INH SCH (08:00)
[2021-02-27] MEDS ORDERED: SERTRALINE HCL 50 MG TAB PO SCH (09:00)
[2021-02-27] MEDS ORDERED: VITAMIN D 1,000 INTERNATIONAL UNITS TABLET PO SCH (09:00)
[2021-02-27] MEDS ORDERED: MELOXICAM (MOBIC) 7.5 MG TAB PO SCH (09:00)
[2021-02-27] MEDS ORDERED: ENOXAPARIN 40MG/0.4ML SYRINGE (J1650 PER 10MG) SC SCH (09:00)
[2021-02-27 10:05] VITALS: BP_SYST 105; BP_SYST 107; BP_SYST 90; BP_DIAS 66; BP_DIAS 71
[2021-02-27] MEDS ORDERED: MIDODRINE 5 MG TAB PO ONE ×2 (10:30→14:30)
[2021-02-27] MEDS ORDERED: NS 1,000 ML IV ONE (11:10)
[2021-02-27] MEDS ORDERED: MIDO5TA PO (11:13)
--- NOTE | 2021-02-27 13:48 | ECGEPIP ---
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
[2021-02-27 13:56] VITALS: BP_SYST 107; BP_SYST 118; BP_SYST 119; BP_DIAS 74; BP_DIAS 75; BP_DIAS 77
--- NOTE | 2021-02-27 14:02 | DSES ---
DISCHARGE SUMMARY DATE OF ADMISSION: 02/26/2021 DATE OF DISCHARGE: 02/27/2021 PRIMARY DISCHARGE DIAGNOSES: 1. Near syncope. 2. Orthostatic hypotension. 3. Interstitial lung disease. 4. Possible hypersensitivity pneumonitis. 5. Osteoarthritis. 6. Reflux. 7. Depression. 8. Hyperlipidemia. 9. Chronic interstitial cystitis. 10. Ascending thoracic aorta, fusiform dilatation 3.7 cm maximally. DISCHARGE MEDICATIONS: - midodrine 10 mg three times a day at 8:00, 12:00 and 4:00 p.m. - albuterol two puffs every 4 hours as needed - cetirizine 10 mg at bedtime - vitamin D 10,000 units daily - vitamin B 12,000 mcg daily - Colace 100 mg twice a day - fluticasone - Breo Ellipta one puff daily - magnesium oxide 400 mg daily - meloxicam 15 mg daily - multivitamin one tablet daily - omega 3 1000 mg daily - omeprazole 20 mg twice a day - sertraline 50 mg daily - vitamin C one capsule twice a day DISCHARGE INSTRUCTIONS: Check your blood pressure three times a day before midodrine and hold midodrine if blood pressure is greater than 140 mmHg and no signs of dizziness or lightheadedness. Call your doctor if your heart rate is less than 40. Primary care physician follow up appointment within five days of discharge and cardiology referral DR. RUFF for Holter monitor regarding presyncope, bradycardia, and orthostasis within one week of hospital discharge. HOSPITAL COURSE: This is a 71-year-old female, presented to the emergency room with complaints of lightheadedness and dizziness for the past few weeks. Heart rate was in the 30s. Oxygen saturation was in the 80s with ambulation. Patient was found to be orthostatic, was given intravenous (IV) fluids. Gabapentin was discontinued. Telemetry monitoring showed sinus rhythm, ventricular rate of 66 to 90 with no sinus pulse heart block on the monitor. She remained orthostatic with blood pressure dropping to 90/66 with standing and was given intravenous fluids and midodrine 10 mg three times a day. CBC, metabolic panel were all normal. Troponins negative times three. Thyroid function tests within normal limits, including TSH and Free T4. CT head was negative. CTA of the chest shows interstitial lung disease, fusiform dilatation, ascending thoracic aorta measuring 3.7 cm maximally with no dissection. Patient is discharged in stable condition. PHYSICAL EXAMINATION ON DISCHARGE: Temperature 97.7, pulse 82, respiratory rate 17, blood pressure 107/71, 96% on room air. GENERAL: Awake, alert, oriented times three, answering questions appropriately. LUNGS: Clear to auscultation. No wheezing, rales or rhonchi. HEART: S1, S2. Sinus rhythm. No murmurs, rubs or gallops. ABDOMEN: Soft, nontender, nondistended. Positive bowel sounds. EXTREMITIES: No clubbing, cyanosis or pitting edema. LABORATORY DATA: White count 6, hemoglobin 12, hematocrit 38, platelet count 167. Sodium 141, potassium 3.9, chloride 107, bicarbonate 29, BUN 11, creatinine 0.67, glucose 77. Troponin less than 0.02. TSH normal 2.5, Free T4 normal 1.03. Respiratory panel: Coronavirus negative. IMAGING STUDIES: See below. TIME SPENT ON DISCHARGE: 30 minutes. [facility]
[2021-02-27] MEDS ORDERED: MIDODRINE 5 MG TAB PO SCH (16:00)
--- NOTE | 2021-03-01 14:41 | ECHO ---
DATE OF PROCEDURE: 02/27/2021 Age: 71 Gender: Female Height: 160 cm Weight: 83 kg REFERRING PHYSICIAN: Dr. Lopez. INDICATION: Presyncope. MEASUREMENTS: IVS 0.8 cm LV 4.7 cm LVPW 0.9 cm LA 3.2 cm Aorta 3.6 cm RV 2.8 cm IVC 1.9 cm Mitral E wave velocity 78 A wave 95 E prime septal 8.5 E prime lateral 9.5 FINDINGS: This study is of acceptable technical quality. Underlying sinus rhythm. Left ventricle is normal size and systolic function, estimated LVEF 60 to 65%. No segmental wall motion abnormalities are appreciated. recalculated LVEF of 60%. Right ventricle is also normal size and systolic function. Both atria appear normal. Aortic valve is tricuspid. There is minimal sclerosis, but mobility is preserved. Tricuspid and mitral valve appear normal. Pulmonic valve was not well seen. No pericardial effusion is noted. Inferior vena cava is within the upper limits of normal size but collapses with inspiration indicative of likely normal central venous pressure. Aortic root, aortic arch, and visualized segment of abdominal aorta all appear normal. Doppler interrogation of aortic valve reveals no stenosis and mild insufficiency. There is trace mitral insufficiency. Tricuspid valve is functionally competent. Mitral inflow pattern and tissue Doppler imaging of mitral annulus revealed grade 1 diastolic dysfunction. Global longitudinal strain was -24.2% which is normal value. CONCLUSIONS: 1. Study is of acceptable technical quality, underlying sinus rhythm. 2. Normal LV size and systolic function, grade 1 diastolic dysfunction, GLS - 24.2%. 3. Mild aortic insufficiency. 4. Trace mitral insufficiency. 5. Likely normal central venous pressure. 6. Unable to estimate pulmonary artery pressure. [facility]TDD
== END 2021-02-27 17:00 | disposition home or self-care (01) | DRG 312 ==
LOC: M ED 17:29 → M ED INP 23:03 → ENRESERV 23:14 → M MSPAV 23:39
PROVIDERS: ADMIT Internal Medicine; ATTEND General Practice
DX: I95.1 Orthostatic hypotension (principal); K21.9 Gastro-esophageal reflux disease without esophagitis; M19.90 Unspecified osteoarthritis, unspecified site; F32.9 Major depressive disorder, single episode, unspecified; E78.5 Hyperlipidemia, unspecified; Z79.899 Other long term (current) drug therapy; N30.10 Interstitial cystitis (chronic) without hematuria; J84.89 Other specified interstitial pulmonary diseases; I71.2 Thoracic aortic aneurysm, without rupture; E66.9 Obesity, unspecified; Z88.5 Allergy status to narcotic agent

== ENCOUNTER → 2023-02-15 | Outpatient (CLI) | payer MEDICARE ==
[~2023-02-15] MED LIST changes: +BREO1INH3 PO; +CETI-24 PO; +CYCL-707 PO; -D31000TA2 PO; +MIDO5TA PO; +OMEP-173 PO; -OMEP-218 PO; +THERTAB52 PO; +VITA100093 PO
[2023-02-15 15:55] LABS: BASO % 0.5 % (0.0-1.0); EOS # 0.2 10^3/uL (0.0-0.5); EOS % 2.1 % (0.0-3.0); HEMATOCRIT 40.4 % (36.0-47.0); HEMOGLOBIN 12.9 g/dl (12.0-15.5); LYMPH # 1.5 10^3/uL (1.5-5.0); LYMPH % 20.4 % (24.0-44.0); MEAN CORPUSCULAR HEMOGLOBIN 31.2 pg (27.0-33.0); MEAN CORPUSCULAR HGB CONC 31.9 g/dl (32.0-36.5); MEAN CORPUSCULAR VOLUME 97.8 fl (80.0-96.0); MONO # 0.9 10^3/uL (0.0-0.8); MONO % 11.3 % (2.0-8.0); NEUTROPHILS # 4.9 10^3/uL (1.5-8.5); NEUTROPHILS % 65.6 % (36.0-66.0); PLATELET COUNT, AUTOMATED 212 10^3/uL (150-450); RED BLOOD COUNT 4.13 10^6/uL (4.00-5.40); WHITE BLOOD COUNT 7.5 10^3/uL (4.0-10.0)
[2023-02-15 16:15] LABS: ERYTHROCYTE SEDIMENTATION RATE 41 mm/hr (0-30)
[2023-02-15 16:20] LABS: URIC ACID 3.9 MG/DL (3.1-7.8)
[2023-02-15 16:23] LABS: C REACTIVE PROTEIN QUANTITATIV < 0.40 MG/DL (<1.0)
[2023-02-15 16:26] LABS: RHEUMATOID FACTOR QUANT 3.6 IU/ML (<14)
[2023-02-17 14:09] LABS: ANTINUCLEAR ANTIBODIES DIRECT Negative (Negative)
== END ==
LOC: M PLALAB 12:25
PROVIDERS: ATTEND Physician Assistant Surgical
DX: M72.2 Plantar fascial fibromatosis (principal); M19.071 Primary osteoarthritis, right ankle and foot; M77.51 Other enthesopathy of right foot and ankle; Z79.899 Other long term (current) drug therapy

== ENCOUNTER → 2023-03-27 | Outpatient (CLI) | payer MEDICARE ==
[~2023-03-27] MED LIST changes: +CYAN-1 PO; -CYAN100050 PO
== END ==
LOC: M PLARAD 14:10
PROVIDERS: ATTEND Family Medicine
DX: R91.1 Solitary pulmonary nodule (principal)
CPT/HCPCS: 78815; A9552

== ENCOUNTER 2023-06-07 19:47 | Emergency (ER) | payer MEDICARE ==
[~2023-06-07] VITALS: Ht 170.2 cm; Wt 92.0 kg
[2023-06-07 20:53] LABS: BASO # 0.1 10^3/uL (0.0-0.2); BASO % 0.7 % (0.0-1.0); EOS # 0.2 10^3/uL (0.0-0.5); EOS % 1.8 % (0.0-3.0); HEMATOCRIT 38.3 % (36.0-47.0); HEMOGLOBIN 12.6 g/dl (12.0-15.5); LYMPH # 1.6 10^3/uL (1.5-5.0); LYMPH % 17.7 % (24.0-44.0); MEAN CORPUSCULAR HEMOGLOBIN 31.7 pg (27.0-33.0); MEAN CORPUSCULAR HGB CONC 32.9 g/dl (32.0-36.5); MEAN CORPUSCULAR VOLUME 96.2 fl (80.0-96.0); NEUTROPHILS # 6.2 10^3/uL (1.5-8.5); NEUTROPHILS % 68.5 % (36.0-66.0); PLATELET COUNT, AUTOMATED 208 10^3/uL (150-450); RED BLOOD COUNT 3.98 10^6/uL (4.00-5.40); WHITE BLOOD COUNT 9.1 10^3/uL (4.0-10.0)
[2023-06-07 21:15] LABS: CK-MB VALUE MASS < 1.0 NG/ML (<3.6); LIPASE 28 U/L (12-53)
[2023-06-07 21:17] LABS: ALBUMIN 3.7 G/DL (3.2-5.2); ALKALINE PHOSPHATASE 148 U/L (46-116); ALT/SGPT 16 U/L (7.0-40); AST/SGOT 16 U/L (<34); BILIRUBIN,DIRECT 0.2 MG/DL (<0.4); BILIRUBIN,TOTAL 0.7 MG/DL (0.3-1.2); BLOOD UREA NITROGEN 17 MG/DL (9-23); CALCIUM LEVEL 9.2 MG/DL (8.3-10.6); CARBON DIOXIDE LEVEL 25 MMOL/L (20-31); CHLORIDE LEVEL 109 MMOL/L (98-107); CPK CREATINE PHOSPHOKINASE 70 U/L (34-145); CREATININE FOR GFR 0.67 MG/DL (0.55-1.30); GLOMERULAR FILTRATION RATE > 60.0 (>39); GLUCOSE, FASTING 116 MG/DL (74-106); MB/CK RELATIVE INDEX 1.42 (< OR =4); POTASSIUM SERUM 3.7 MMOL/L (3.5-5.1); SODIUM LEVEL 143 MMOL/L (136-145); TOTAL PROTEIN 6.7 G/DL (5.7-8.2)
[2023-06-07 21:19] LABS: FREE T4 1.18 NG/DL (0.89-1.76)
[2023-06-07 21:30] VITALS: TEMP 97
[2023-06-07 22:00] VITALS: BP 132/67
[2023-06-07 22:06] LABS: CK-MB VALUE MASS < 1.0 NG/ML (<3.6)
[2023-06-07 22:08] LABS: CPK CREATINE PHOSPHOKINASE 53 U/L (34-145); MB/CK RELATIVE INDEX 1.88 (< OR =4)
[2023-06-07 22:15] VITALS: O2SAT 98
== END 2023-06-07 22:31 | disposition home or self-care (01) ==
LOC: M ED 19:47
DX: R07.9 Chest pain, unspecified (principal); M54.50 Low back pain, unspecified; K21.9 Gastro-esophageal reflux disease without esophagitis; F41.9 Anxiety disorder, unspecified; Z88.5 Allergy status to narcotic agent; Z88.8 Allergy status to other drugs, medicaments and biological substances; Z79.52 Long term (current) use of systemic steroids; Z79.810 Long term (current) use of selective estrogen receptor modulators (SERMs); Z79.899 Other long term (current) drug therapy

== ENCOUNTER → 2025-02-10 | Outpatient (CLI) | payer MEDICARE | LOC: M PLAIMG 14:14 | PROVIDERS: ATTEND Internal Medicine Critical Care Medicine | DX: J67.9 Hypersensitivity pneumonitis due to unspecified organic dust (principal); I25.10 Atherosclerotic heart disease of native coronary artery without angina pectoris; I70.0 Atherosclerosis of aorta; K44.9 Diaphragmatic hernia without obstruction or gangrene; J47.9 Bronchiectasis, uncomplicated; J84.10 Pulmonary fibrosis, unspecified; R91.8 Other nonspecific abnormal finding of lung field ==

== ENCOUNTER → 2025-03-04 | Outpatient (REF) | payer MEDICARE | LOC: M LAB REF 16:50 | PROVIDERS: ATTEND Internal Medicine Critical Care Medicine | DX: J67.9 Hypersensitivity pneumonitis due to unspecified organic dust (principal) ==

== ENCOUNTER → 2025-07-15 | Outpatient (CLI) | payer MEDICARE | LOC: M RAD 16:46 | PROVIDERS: ATTEND Internal Medicine Pulmonary Disease | DX: J45.40 Moderate persistent asthma, uncomplicated (principal); J47.9 Bronchiectasis, uncomplicated; R91.8 Other nonspecific abnormal finding of lung field ==

== ENCOUNTER → 2025-08-08 | Outpatient (REF) | payer MEDICARE | LOC: M LAB REF 11:35 | PROVIDERS: ATTEND Internal Medicine Critical Care Medicine | DX: J67.9 Hypersensitivity pneumonitis due to unspecified organic dust (principal) ==